=== PATIENT | male | born 1945 | race Caucasian/White ===

== ENCOUNTER → 2018-02-02 | Outpatient (CLI) | payer OTHER ==
[~2018-02-02] MED LIST: ADVAIR HFA 230M12 GM INH; ASPIRIN81 M2 PO; AZITHROMYCIN 2250 MG PO; CEFDINIR300 MG PO; CEFUROXIME500 MG PO; DUONEB 2.5-0.5 M3 ML INH; FLEXERIL PO; FLOMAX0.4 MG PO; GLUCOPHAGE500 MG PO; HUMULIN 70100 UNIT/3 SUBQ; HUMULIN N100 UNIT/3 SQ; IPRATROPIU0.2 MG/1 M INH; LANTUS SUBQ; LEVAQUIN 500 M500 M2 PO; LISINOPRIL10 MG PO; MUCINEX TA600 MG/TA2 PO; MUCINEX600 MG PO; NEBULIZER MISCELL; NORCO 5-325 TA1 EAC1 PO; NOVOLOG100 UNIT/1 SQ; OMEPRAZOLE 20 M20 M1 PO; PRAVACHOL40 MG PO; PREDNISONE 10 M10 MG PO; PREDNISONE10 MG PO; PROAIR HFA8.5 GM INH; PROTONIX40 M1 PO; SINGULAIR 10 MG10 M1 PO; STIOLTO RESPIMAT4 GM INH; VENTOLIN HFA 1818 GM INH; VERTICALM25 MG PO; ZYVOX600 MG PO
== END ==
LOC: M.MRI 10:53
DX: M19.011 Primary osteoarthritis, right shoulder (principal); M75.21 Bicipital tendinitis, right shoulder

== ENCOUNTER 2018-05-12 00:49 | Inpatient (IN) | payer OTHER ==
[2018-05-12] VITALS (8 sets, daily range): BP systolic 84–155; BP diastolic 25–83
[~2018-05-12] VITALS: Ht 172.7 cm; Wt 98.9 kg
[~2018-05-12 00:49] MED LIST changes: -ADVAIR HFA 230M12 GM INH; -CEFDINIR300 MG PO; -FLEXERIL PO; -FLOMAX0.4 MG PO; -IPRATROPIU0.2 MG/1 M INH; -MUCINEX600 MG PO; -OMEPRAZOLE 20 M20 M1 PO; -PROAIR HFA8.5 GM INH; -SINGULAIR 10 MG10 M1 PO; -STIOLTO RESPIMAT4 GM INH
[2018-05-12] MEDS ORDERED: FLEXERIL PO (00:57)
[2018-05-12] MEDS ORDERED: FLOMAX0.4 MG PO (00:57)
[2018-05-12] MEDS ORDERED: OMEPRAZOLE 20 M20 M1 PO (00:58)
[2018-05-12] MEDS ORDERED: STIOLTO RESPIMAT4 GM INH (00:58)
[2018-05-12] MEDS ORDERED: PROAIR HFA8.5 GM INH (00:59)
[2018-05-12] MEDS ORDERED: IPRATROPIU0.2 MG/1 M INH (01:00)
[2018-05-12 01:17] LABS: HEMATOCRIT 42.2 % (42.0-52.0); HEMOGLOBIN 13.9 gm/dL (14.0-18.0); MCH 30.9 pg (26.0-34.0); MCHC 32.9 g/dL (28.0-37.0); MCV 93.8 fL (80.0-100.0); MPV 10.1 fl. (7.2-11.1); NUCLEATED RBCS 0 /100WBC; PLATELET COUNT* 145 thou/uL (150-400); WBC 15.2 thou/uL (4.0-11.0)
[2018-05-12 01:17] LABS: BE -0.5 mmol/L (-2 to +3); HCO3 24.5 mmol/L (22.0-26.0); PCO2 41.7 mmHg (35.0-45.0); PO2 64.3 mmHg (75.0-100.0); pH 7.387 (7.340-7.450)
[2018-05-12 01:30] LABS: APTT 31.7 Seconds (25.0-31.3); PROTIME 10.5 Seconds (9.20-11.50)
[2018-05-12 01:31] LABS: ANION GAP 6 mmol/L (7-16); BUN 22 mg/dL (7-18); CALCIUM 8.9 mg/dL (8.5-10.1); CHLORIDE 98 mmol/L (98-107); CO2 31 mmol/L (21-32); CREATININE 1.1 mg/dL (0.6-1.3); GLUCOSE 188 mg/dL (70-99); POTASSIUM 4.7 mmol/L (3.5-5.1); SODIUM 135 mmol/L (136-145)
[2018-05-12 01:39] LABS: INFLUENZA A ANTIGEN None Detected (None Detect); INFLUENZA B ANTIGEN None Detected (None Detect)
[2018-05-12 01:41] LABS: ALBUMIN 2.8 g/dL (3.4-5.0); ALKALINE PHOSPHATASE 92 U/L (46-116); LIPASE 41 U/L (73-393); NT-PRO BRAIN NAT PEPTIDE 1193 pg/mL (<300); SGOT 14 U/L (15-37); SGPT 26 U/L (30-65); TOTAL BILIRUBIN 0.7 mg/dL (<0.1-1.0); TOTAL PROTEIN 7.2 g/dL (6.4-8.2); TROPONIN-I LEVEL <0.06 ng/mL (<0.06)
[2018-05-12 01:45] LABS: ABSOLUTE LYMPHOCYTES 0.6 thou/uL (0.8-5.3); ABSOLUTE MONOCYTES 2.1 thou/uL (0.0-1.2); ABSOLUTE NEUTROPHILS 12.5 thou/uL (1.6-8.1)
[2018-05-12 01:46] LABS: PLATELET ESTIMATE DECREASED; TOXIC GRANULATION Occasional
--- NOTE | 2018-05-12 11:38 | EKG ---
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 : 1945 Requested By: Lesley Lozano Order Number: [id number] MD: Arturo Nash Measurements Intervals [place] Rate: 103 P: 43 ID: [id number] QRS: -9 QRSD: 148 T: 14 QT: 378 QTc: 495 Interpretive Statements Sinus tachycardia Atrial premature complexes Right bundle branch block Probable left ventricular hypertrophy Borderline prolonged QT interval Baseline wander in lead(s) V6 Compared to ECG 03/22/2017 15:16:47 Atrial premature complex(es) now present Sinus rhythm no longer present Electronically Signed On 05-12-2018 11:38:18 INSTALLATION ENGINEER by Arturo Nash [email or web address] <ELECTRONICALLY SIGNED> By: Arturo Nash MD, FACC 05/12/18 1138 1 010 Arturo Nash MD, FACC /EPI
[2018-05-12 11:55] LABS: URINE BILIRUBIN NEGATIVE (Negative); URINE BLOOD 1+ (Negative); URINE CLARITY CLEAR; URINE COLOR YELLOW; URINE GLUCOSE-RANDOM 3+ (Negative); URINE KETONES 1+ (Negative); URINE LEUKOCYTES NEGATIVE (Negative); URINE NITRITE NEGATIVE (Negative); URINE PROTEIN 2+ (Negative); URINE SPECIFIC GRAVITY >= 1.030 (1.005-1.030)
[2018-05-12 12:05] LABS: BACTERIA None Seen /HPF (None Seen); CASTS None Seen /LPF (None Seen); CRYSTALS None Seen /LPF (None Seen); SQUAMOUS 4-10 Moderate /LPF (0-3); URINE RBC 0-2 Rare /HPF (0-2); URINE WBC 0-5 Rare /HPF (0-5)
[2018-05-13] VITALS: BP 144/88
[2018-05-13 04:00] VITALS: BP 149/71
[2018-05-13 05:01] LABS: HEMATOCRIT 40.2 % (42.0-52.0); MCH 30.5 pg (26.0-34.0); MCHC 32.3 g/dL (28.0-37.0); MCV 94.4 fL (80.0-100.0); MPV 10.2 fl. (7.2-11.1); RBC 4.25 mil/uL (4.50-6.00); RDW-CV 13.1 % (10.5-14.5); WBC 13.3 thou/uL (4.0-11.0)
[2018-05-13 05:18] LABS: CALCIUM 9.1 mg/dL (8.5-10.1); CREATININE 1.1 mg/dL (0.6-1.3); MAGNESIUM 2.1 mg/dL (1.8-2.4); POTASSIUM 4.7 mmol/L (3.5-5.1)
[2018-05-13 08:00] VITALS: BP 128/70
[2018-05-13 12:00] VITALS: BP 134/66
[2018-05-13 15:46] VITALS: BP 134/69
[2018-05-13 20:10] VITALS: BP 157/81
[2018-05-14] VITALS: BP 160/84
[2018-05-14 04:59] LABS: ABSOLUTE BASOPHILS 0.1 thou/uL (0.0-0.2); ABSOLUTE LYMPHOCYTES 0.9 thou/uL (0.8-5.3); ABSOLUTE MONOCYTES 0.8 thou/uL (0.0-1.2); ABSOLUTE NEUTROPHILS 13.5 thou/uL (1.6-8.1); BASOPHILS 0.5 %; HEMOGLOBIN 13.7 gm/dL (14.0-18.0); LYMPHOCYTES 5.9 %; MCH 30.6 pg (26.0-34.0); MCHC 32.5 g/dL (28.0-37.0); MCV 93.9 fL (80.0-100.0); MONOCYTES 4.9 %; MPV 9.5 fl. (7.2-11.1); NUCLEATED RBCS 0 /100WBC; PLATELET COUNT* 206 thou/uL (150-400); POLYS 88.7 %; RBC 4.47 mil/uL (4.50-6.00); RDW-CV 13.1 % (10.5-14.5); WBC 15.2 thou/uL (4.0-11.0)
[2018-05-14 05:15] LABS: CALCIUM 9.2 mg/dL (8.5-10.1); CREATININE 1.1 mg/dL (0.6-1.3); POTASSIUM 5.1 mmol/L (3.5-5.1)
[2018-05-14 08:00] VITALS: BP 140/77
[2018-05-14 14:00] VITALS: BP 139/69
[2018-05-14 20:43] VITALS: BP 144/71
[2018-05-15] VITALS: BP 146/45
[2018-05-15 04:53] LABS: HEMATOCRIT 42.3 % (42.0-52.0); HEMOGLOBIN 13.9 gm/dL (14.0-18.0); MCH 30.9 pg (26.0-34.0); MCHC 32.9 g/dL (28.0-37.0); MCV 93.8 fL (80.0-100.0); MPV 9.2 fl. (7.2-11.1); RBC 4.51 mil/uL (4.50-6.00); RDW-CV 12.8 % (10.5-14.5); WBC 14.3 thou/uL (4.0-11.0)
[2018-05-15 08:00] VITALS: BP 163/96
[2018-05-15] MEDS ORDERED: MUCINEX600 MG PO (08:35)
[2018-05-15] MEDS ORDERED: PREDNISONE 10 M10 MG PO (08:35)
[2018-05-15] MEDS ORDERED: CEFDINIR300 MG PO (08:35)
[2018-05-15] MEDS ORDERED: AZITHROMYCIN 2250 MG PO (08:35)
[2018-05-15] MEDS ORDERED: ADVAIR HFA 230M12 GM INH (08:35)
[2018-05-15] MEDS ORDERED: SINGULAIR 10 MG10 M1 PO (08:35)
[2018-05-15 11:47] VITALS: BP 163/96
--- NOTE | 2018-05-16 08:05 | CON ---
[address] [address] CONSULTATION Name: LESLEY MOSS Room: [address] IN M.R.#: [id number] Admission: 05/12/18 Attend Phys: Erika Grove Discharge: 05/15/18 Date of : 45 Report #: [id number] THIS REPORT FOR: //name// CC: Lavonne Rossi REASON FOR CONSULTATION: Respiratory failure, pulmonary infiltrate. HISTORY OF PRESENT ILLNESS: This is a 73-year-old male patient who was actively smoker, according to him, he smoked all his life and he has COPD, although he is not on any oxygen at home. He presented to the Emergency Department with increasing cough and shortness of breath. This cough is associated with yellow sputum. Also, he reported feeling feverish. The shortness of breath had been progressed. It is worse with exertion and progressed to a degree now he feels shortness of breath even at rest. He had no pain, no chest pain, no palpitation, no PNDs, no orthopnea. He denied any lower extremity edema. He continues to smoke. He was found to be hypoxic in the ER and started requiring O2 and he was admitted. He reported that he tried to use his nebulization treatment without much benefit. He denied any sick contacts or recent travel. He reported that he feels somewhat better with the treatment he received in the Emergency Room. ALLERGIES: No known drug allergies. PAST MEDICAL HISTORY: He has diabetes, hypertension, COPD, previous pneumonia. PAST SURGICAL HISTORY: Bilateral eye surgery and lens implant. HOME MEDICATIONS: He reports that he is on insulin, tamsulosin, omeprazole. He is on Stiolto and he is on DuoNeb. FAMILY HISTORY: Reviewed with the patient, noncontributory. SOCIAL HISTORY: He continues to smoke for multiple years, he smokes 1 pack per day. Does not drink alcohol. Does not abuse drugs. REVIEW OF SYSTEMS: GENITOURINARY: He denies any hematuria, dysuria, frequency or urgency. MUSCULOSKELETAL: Denies any back pain, muscle pain, joint deformities or injuries. SKIN: He denied any rash, bruising, or change in color. NEUROLOGIC: He denied any numbness, tingling, dizziness or focal weakness. EYES: Denies any eye pain, discharge, floaters or redness. CONSTITUTIONAL: He reported that he had a feeling of fever. No chills, no fatigue, no tired. GASTROINTESTINAL: He denied any abdominal pain, nausea, vomiting, [place] [address] CONSULTATION Name: LESLEY MOSS Room: [address]#: [id number] Admission: 05/12/18 Attend Phys: Erika Grove Discharge: 05/15/18 Date of : 45 Report #: [id number] bleeding from any orifice. The rest of the review of system was Negative. A 12-point review of systems reviewed with the patient. PHYSICAL EXAMINATION: VITAL SIGNS: He was on 4 liters oxygen with oxygen saturation more than 90%, blood pressure 128/70, pulse rate of 69, temperature 36.7. GENERAL: Sitting on the side of the bed, awake, alert, speaks in full sentences. No full distress. HEENT: Head, normocephalic, atraumatic. Pupils reactive to light. Not pale, no jaundice. Externally ears look healthy and normal. Nasal cavity patent passages. Oral cavity: Mallampati of 2, moist mucous membrane, no thrush. NECK: Supple. No palpable lymph node. No palpable thyroid. Trachea is central. CHEST: Diminished air movement bilaterally with prolonged expiratory phase and end-expiratory wheezes. Symmetrical expansion, nontender. HEART: S1, S2. No murmur, no gallop. ABDOMEN: Benign, soft, lax, nontender, positive bowel sounds. No masses felt. EXTREMITIES: Lower extremity, no edema. Moving 4 extremities spontaneously. No focal weakness. No calf tenderness. NEUROLOGIC: Cranial nerves grossly normal. PSYCHIATRIC: Mood and affect appropriate. Good insight, judgment. SKIN: Normal for age and race, no rash. LYMPHATICS: No palpable lymph node. LABORATORY DATA: His ABG is 7.38/41/64, this was done on 4 liter oxygen. His white blood count 16.3, hemoglobin 13 and platelets of 160. His creatinine is 1.1, potassium 4.7, sodium 136. His Influenza A and B negative. His chest x-ray in the ER showed interstitial infiltrates with some progression. However, the CT of the chest demonstrated ground glass infiltrate and very fine small central lobular nodules. IMPRESSION: 1. Acute hypoxic respiratory failure. 2. Chronic obstructive pulmonary disease exacerbation. 3. Pulmonary nodules. 4. Ground-glass infiltrate. PLAN: We will suspect the patient is in chronic obstructive pulmonary disease exacerbation. As unfortunately he continues to smoke, he had though central lobular nodule, which could indicate infectious process like pneumonia, bacterial versus viral, I agree with antibiotics and steroids and scheduled nebulization treatments. Also, these nodules could be related to continued smoking, like smoking related interstitial lung disease. I strongly recommend smoking cessation. [address] [address] CONSULTATION Name: LESLEY MOSS Room: [address] IN [facility]#: [id number] Admission: 05/12/18 Attend Phys: Erika Grove Discharge: 05/15/18 Date of : 45 Report #: [id number] We will check hypersensitivity pneumonitis panel and he will be on steroids. Thank you for the consult. We will follow along with you. <ELECTRONICALLY SIGNED> By: Mickie Pulliam MD 05/16/18 0805 1125 [id number] Pulliam MD /nt
== END 2018-05-15 12:15 | disposition home or self-care (01) | DRG 193 ==
LOC: M.ERS 00:49 → M.2W 01:52 → M.TBA-ER 01:52 → M.2W 02:10
PROVIDERS: Emergency Medicine; Internal Medicine; ADMIT Internal Medicine
DX: J15.9 Unspecified bacterial pneumonia (principal); J96.01 Acute respiratory failure with hypoxia; J44.1 Chronic obstructive pulmonary disease with (acute) exacerbation; J44.0 Chronic obstructive pulmonary disease with (acute) lower respiratory infection; R65.10 Systemic inflammatory response syndrome (SIRS) of non-infectious origin without acute organ dysfunction; Z66 Do not resuscitate; E11.9 Type 2 diabetes mellitus without complications; I10 Essential (primary) hypertension; E78.5 Hyperlipidemia, unspecified; R91.1 Solitary pulmonary nodule; F17.210 Nicotine dependence, cigarettes, uncomplicated; Z79.4 Long term (current) use of insulin; Z71.6 Tobacco abuse counseling; Z79.899 Other long term (current) drug therapy; Z82.49 Family history of ischemic heart disease and other diseases of the circulatory system

== ENCOUNTER 2018-07-07 10:44 | Inpatient (IN) | payer OTHER ==
[~2018-07-07] VITALS: Ht 172.7 cm; Wt 105.7 kg
[~2018-07-07 10:44] MED LIST changes: +ADVAIR HFA 230M12 GM INH; +CEFDINIR300 MG PO; +FLEXERIL PO; +FLOMAX0.4 MG PO; +IPRATROPIU0.2 MG/1 M INH; +MUCINEX600 MG PO; +OMEPRAZOLE 20 M20 M1 PO; +PROAIR HFA8.5 GM INH; +SINGULAIR 10 MG10 M1 PO; +STIOLTO RESPIMAT4 GM INH
[2018-07-07 10:57] VITALS: BP 145/67
[2018-07-07 11:44] LABS: HEMATOCRIT 40.3 % (42.0-52.0); HEMOGLOBIN 13.2 gm/dL (14.0-18.0); MCH 30.6 pg (26.0-34.0); MCHC 32.8 g/dL (28.0-37.0); MCV 93.3 fL (80.0-100.0); MPV 9.7 fl. (7.2-11.1); NUCLEATED RBCS 0 /100WBC; PLATELET COUNT* 164 thou/uL (150-400); RBC 4.32 mil/uL (4.50-6.00); RDW-CV 13.8 % (10.5-14.5); WBC 15.1 thou/uL (4.0-11.0)
[2018-07-07 11:48] LABS: CALCIUM 9.1 mg/dL (8.5-10.1); CREATININE 1.1 mg/dL (0.6-1.3); POTASSIUM 4.3 mmol/L (3.5-5.1)
[2018-07-07 11:56] LABS: ALBUMIN 3.3 g/dL (3.4-5.0); TOTAL BILIRUBIN 0.5 mg/dL (<0.1-1.0); TOTAL PROTEIN 7.4 g/dL (6.4-8.2)
[2018-07-07 12:17] LABS: ABSOLUTE LYMPHOCYTES 0.6 thou/uL (0.8-5.3); ABSOLUTE MONOCYTES 1.1 thou/uL (0.0-1.2); ABSOLUTE NEUTROPHILS 13.4 thou/uL (1.6-8.1); METAMYELOCYTES 1 %
[2018-07-07 12:18] LABS: PLATELET ESTIMATE ADEQUATE; TOXIC GRANULATION 2+
[2018-07-07 12:20] LABS: BE -2.5 mmol/L (-2 to +3); PCO2 37.3 mmHg (35.0-45.0); PO2 70.7 mmHg (75.0-100.0); pH 7.389 (7.340-7.450)
[2018-07-07 14:52] VITALS: BP 149/74
[2018-07-07 15:30] VITALS: BP 137/80
[2018-07-07] MEDS ORDERED: ADVAIR HFA 230M12 GM INH (17:39)
[2018-07-07] MEDS ORDERED: VENTOLIN HFA 1818 GM INH (17:40)
--- NOTE | 2018-07-07 19:04 | NUR ---
ASSUMED PATIENT CARE @ 1445. LEFT ELBOW PAIN OF 01/05. PT ORIENTED TO ROOM. IVF STARTED AND INFUSING. VS STABLE. RECEIVED HYDROCODONE FOR PAIN CONTROL. PT REPORTED DID NOT RELIEVE PAIN. PT TO BE NPO AT MIDNOC. HAS DRESSING PLACED BY ER ON LEFT ELBOW. HOURLY ROUNDS MAINTAINED. WILL USE CALL LIGHT FOR ASSISTANCE.
[2018-07-07 20:00] VITALS: BP 111/50
[2018-07-08 04:21] LABS: ABSOLUTE EOSINOPHILS 0.2 thou/uL (0.0-0.7); ABSOLUTE LYMPHOCYTES 1.5 thou/uL (0.8-5.3); ABSOLUTE MONOCYTES 1.4 thou/uL (0.0-1.2); ABSOLUTE NEUTROPHILS 9.2 thou/uL (1.6-8.1); BASOPHILS 0.3 %; EOSINOPHILS 1.4 %; HEMATOCRIT 32.4 % (42.0-52.0); LYMPHOCYTES 12.4 %; MCH 30.9 pg (26.0-34.0); MCHC 33.3 g/dL (28.0-37.0); MCV 92.6 fL (80.0-100.0); MONOCYTES 11.4 %; MPV 9.8 fl. (7.2-11.1); NUCLEATED RBCS 0 /100WBC; PLATELET COUNT* 141 thou/uL (150-400); POLYS 74.5 %; RBC 3.49 mil/uL (4.50-6.00); RDW-CV 13.9 % (10.5-14.5); WBC 12.4 thou/uL (4.0-11.0)
[2018-07-08 04:31] LABS: APTT 33.5 Seconds (25.0-31.3); PROTIME 10.4 Seconds (9.20-11.50)
[2018-07-08 04:32] LABS: HEMOGLOBIN 10.8 gm/dL (14.0-18.0)
[2018-07-08 04:33] LABS: CREATININE 1.1 mg/dL (0.6-1.3); POTASSIUM 4.1 mmol/L (3.5-5.1)
--- NOTE | 2018-07-08 06:14 | NUR ---
PT. HAS C/O PAIN THROUGHOUT SHIFT, CALL MADE TO DR. ALBA REGARDING PAIN CONTROL, INCREASED HYDROCODONE TO 1-2 TABS PRN. PT. GIVEN 2 HYDROCODONE, NO PAIN RELIEF OBTAINED. WILL RELAY TO ONCOMING SHIFT. PT. IS STAND BY ASSIST WHEN AMBULATING. HOURLY ROUNDING COMPLETED. CALL LIGHT IN REACH, WILL CONTINUE TO MONITOR.
[2018-07-08 08:00] VITALS: BP 121/53
--- NOTE | 2018-07-08 10:55 | CON ---
[address] [address] CONSULTATION Name: AJAYLESLEY Migdalia Room: [address] IN M.R.#: [id number] Admission: 07/07/18 Attend Phys: Drew Degroot MD Discharge: Date of : 45 Report #: [id number] THIS REPORT FOR: //name// CC: Lavonne Degroot DATE OF SERVICE: 07/08/2018 INFECTIOUS DISEASE CONSULTATION ATTENDING PHYSICIAN: Drew Degroot M.D. REASON FOR EVALUATION: Left olecranon septic bursitis. HISTORY OF PRESENT ILLNESS: Chart reviewed, the patient examined. This is a 73-year-old gentleman with diabetes mellitus roughly 18 years diagnosis and also COPD, who awoke out of sleep and noted pain and swelling, which he describes a size of a golf ball, on his left elbow lateral aspect. He was evaluated as an outpatient and attempted drainage, without success and he was placed on antibiotics. However, there was no evidence of improvement. He denies any significant systemic illness. No fevers or chills. Appetite has been good. No pulmonary or gastrointestinal-related complaints different from baseline. He was evaluated, including imaging. Plain film showed prominent soft tissue swelling over the left olecranon region. He underwent CT, which confirmed a 2 x 3 x 5 cm irregular fluid collection with intraluminal gas in the posterior soft tissues of the elbow and a question of olecranon bursal infection or adjacent subcutaneous abscess. He has extensive subcutaneous edema as well, consistent with cellulitis, extending both distally and proximally. Blood cultures were collected; they are sterile thus far. He was empirically started on ceftriaxone. He is not encephalopathic. ALLERGIES: None known. MEDICATIONS: Medicines include now vancomycin, insulin, promethazine, bisacodyl, diphenhydramine, montelukast, ipratropium and albuterol inhaler, tamsulosin, pantoprazole, ceftriaxone, p.r.n. analgesics and antiemetics. PAST MEDICAL HISTORY: History of diabetes mellitus and also COPD. SOCIAL HISTORY: Former smoker. No ethanol. No illicit drug use. FAMILY HISTORY: Noncontributory. REVIEW OF SYSTEMS: Ten-point review of systems otherwise unremarkable, with the exception noted in the above [place] [address] CONSULTATION Name: LESLEY MOSS Room: [address]#: [id number] Admission: 07/07/18 Attend Phys: Drew Degroot MD Discharge: Date of : 45 Report #: [id number] PHYSICAL EXAMINATION: GENERAL: He is in vatd-of-tjcqpaao distress. He is not encephalopathic. He is reasonably well nourished. VITAL SIGNS: Temperature 99.3, pulse 89, respirations 20 and blood pressure 111/50. SKIN: Warm. HEENT: Otherwise unremarkable. Extraocular muscles intact. NECK: Supple. LUNGS: Diminished, otherwise clear. HEART: Regular. I do not appreciate a murmur. ABDOMEN: Soft, nontender and nondistended. EXTREMITIES: Left upper extremity has mvljdfvj-cn-czenre inflammatory changes noted centering on the olecranon site. There is marked swelling and there is some tenseness and tenderness to palpation, consistent with excessive bursal fluid. It does extend several centimeters down under the forearm and up the arm. Overlying the olecranon, there is some hemorrhagic appearance, although not initially contused. GENITOURINARY: Deferred. RECTAL: Deferred. LABORATORY DATA: Blood cultures sterile thus far. TSH of 0.666. Vitamin B12 of 415. Electrolytes: Sodium 136, potassium 4.1, chloride 106, bicarbonate 27, anion gap of 6, BUN and creatinine 17 and 1.1 and estimated GFR of 66. PT of 10.4, INR 1.0. CBC: White count of 12.4, H and H 10.8 and 32.4 and platelets of 141,000. IMAGING: As noted above. ASSESSMENT AND PLAN: Left olecranon septic bursitis. We will continue empiric antimicrobial therapy, presume a staph or strep etiology, likely the former, noted Surgery to evaluate. In all likelihood, he will need some sort of debridement procedure and evacuation of the bursa and possibly bursectomy. At this point, he is not overtly toxic. We will monitor expectantly. <ELECTRONICALLY SIGNED> By: Gómez Lima MD 07/08/18 1055 0924 [id number] Lima MD /nt
[2018-07-08 16:05] VITALS: BP 124/60
[2018-07-08 20:00] VITALS: BP 141/66
[2018-07-09 04:03] LABS: HEMATOCRIT 32.7 % (42.0-52.0); HEMOGLOBIN 10.7 gm/dL (14.0-18.0); MCH 30.6 pg (26.0-34.0); MCHC 32.8 g/dL (28.0-37.0); MCV 93.3 fL (80.0-100.0); MPV 9.7 fl. (7.2-11.1); RBC 3.51 mil/uL (4.50-6.00); RDW-CV 13.6 % (10.5-14.5); WBC 12.4 thou/uL (4.0-11.0)
[2018-07-09 04:10] LABS: CALCIUM 7.7 mg/dL (8.5-10.1); CREATININE 1.3 mg/dL (0.6-1.3); MAGNESIUM 1.6 mg/dL (1.8-2.4); POTASSIUM 4.1 mmol/L (3.5-5.1)
--- NOTE | 2018-07-09 05:16 | NUR ---
PT REMAINED A&Ox4 THROUGHOUT SHIFT. VITALS STABLE. OX 93% ON RA. IV IN R AC PATENT, SL. COMPLETED 3 BAGS OF FLUIDS. UP AD SHANTANU IN ROOM. L ELBOW REMAINS SWOLLEN. KEYUR CALLED AND STATED PT WILL HAVE SURGERY AT 11AM TO CLEAN OUT SITE. COMPLAINED OF MINIMAL PAIN, DENIED PAIN MEDS. PT WAS NPO AFTER MIDNIGHT FOR SURGERY IN AM. CALL LIGHT WITHIN REACH. HOURLY ROUNDING COMPLETE. WILL CONTINUE TO MONITOR.
[2018-07-09 08:00] VITALS: BP 144/95
[2018-07-09 08:41] VITALS: BP 144/53
[2018-07-09 10:23] VITALS: BP 144/53
[2018-07-09 10:28] VITALS: BP 144/60
--- NOTE | 2018-07-09 10:28 | NUR ---
TO PRE OP AT 1000 WITH GOLDEN TAN.
--- NOTE | 2018-07-09 10:53 | EKG ---
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: : 1945 Requested By: Rolando Rose Order Number: [id number] Zeke MD: Dwayne Price Measurements Intervals [place] Rate: 97 P: 35 ID: 163 QRS: -19 QRSD: 151 T: 16 QT: 384 QTc: 488 Interpretive Statements Sinus rhythm Right bundle branch block Compared to ECG 05/12/2018 01:02:13 Sinus tachycardia no longer present Atrial premature complex(es) no longer present Electronically Signed On 07-09-2018 10:53:20 WASTEWATER PROJECT ENGINEER by Dwayne Price [email or web address] <ELECTRONICALLY SIGNED> By: Dwayne Price MD, [facility] 07/09/18 1053 6 6 Dwayne Price MD, [facility] /EPI
--- NOTE | 2018-07-09 14:12 | NUR ---
PER 'S NOTE THAT PT.MAY NEED IV ANTIBIOTIC AT DISCHARGE,FAXED FACE SHEE,MED LIST AND H&P TO [facility]/[phone] TO CHECK BENEFITS.
--- NOTE | 2018-07-09 15:30 | NUR ---
PT.RESTING AFTER I&D. DAUGHTER AT BEDSIDE. PT.STATED HE LIVES WITH HIS . SHE CAN ASSIST HIM NEEDED. DAUGHTER IS ALSO SUPPORTIVE. PT.STATED HE IS INDEPENDENT AT HOME. CONTINUES TO DRIVE. ONLY DME HE HAS IS A NEBULIZER. DISCUSSED POSSIBILITY OF IV ANTIBIOTICS AT DISCHARGE. HE SAID HE FEELS HIS AND HE COULD LEARN TO INFUSE THEM. DAUGHTER SAID THEY ALL HAVE A MEDICAL BACKROUND SO WOULD NOT BE A PROBLEM. DISCUSSED BENEFITS WITH HIM REPORTED FROM [facility].
[2018-07-09 16:31] VITALS: BP 138/57
[2018-07-09 22:14] VITALS: BP 129/65
[2018-07-10 00:15] VITALS: BP 121/59
--- NOTE | 2018-07-10 02:29 | NUR ---
RECIEVED REPORT AND ASSUMED CARE OF PT AT 1930. PT TACHYPNIC WITH RESPIRATORY STRIDOR AND USING ACCESSORY MUSCLES TO BREATHE AT THAT TIME. PT'S LUNGS WET AND WHEEZY. O2 SAT ON 2 LITERS 92%. 2-3+ EDEMA NOTED IN HANDS, FEET AND ANKLES. DR SHEPPARD NOTIFIED OF PT'S CHANGE IN CONDITION. RECIEVED ORDERS FOR IV LASIX. PT GIVEN 80 MG IV LASIX. PT HAS DIURESED 1600 UP TO THIS POINT. PT NOW LAYING IN BED SLEEPING WITH OU CLOSED. O2 SAT NOW 94-97% ON ROOM AIR. LUNG SOUNDS AND EFFORT OF BREATHING IMPROVED.
[2018-07-10 03:49] VITALS: BP 140/77
[2018-07-10 04:15] LABS: HEMATOCRIT 33.6 % (42.0-52.0); HEMOGLOBIN 11.1 gm/dL (14.0-18.0); MCH 30.7 pg (26.0-34.0); MCV 92.9 fL (80.0-100.0); MPV 9.8 fl. (7.2-11.1); RBC 3.61 mil/uL (4.50-6.00); RDW-CV 13.6 % (10.5-14.5); WBC 11.1 thou/uL (4.0-11.0)
[2018-07-10 04:23] LABS: CALCIUM 7.9 mg/dL (8.5-10.1); CREATININE 1.3 mg/dL (0.6-1.3); MAGNESIUM 1.6 mg/dL (1.8-2.4); POTASSIUM 4.4 mmol/L (3.5-5.1)
--- NOTE | 2018-07-10 07:01 | NUR ---
PT RECIEVED 80 MG IV LASIX AT START OF SHIFT FOR RESPIRATORY DISTRESS AND SWELLIN OF EXTREMITIES. PT DIURESED 2175 DURING NIGHT. PT RESPIRATORY STATUS BACK TO BASELINE. PT REPORTS BREATHING BETTER AND FEELING BETTER. NO PAIN OR DISCOMFORT AT SUGICAL SITE DURING SHIFT. SUGURY RESIDENT HERE AT 0600. REMOVED DRESSING AND REDRESSED SITE.
[2018-07-10 08:00] VITALS: BP 162/84
[2018-07-10 16:00] VITALS: BP 154/62
[2018-07-10 21:00] VITALS: BP 140/66
[2018-07-11 05:06] LABS: HEMATOCRIT 31.5 % (42.0-52.0); HEMOGLOBIN 10.6 gm/dL (14.0-18.0); MCH 31.3 pg (26.0-34.0); MCHC 33.6 g/dL (28.0-37.0); MCV 93.2 fL (80.0-100.0); MPV 8.9 fl. (7.2-11.1); RBC 3.38 mil/uL (4.50-6.00); RDW-CV 13.7 % (10.5-14.5)
[2018-07-11 05:42] LABS: CALCIUM 8.3 mg/dL (8.5-10.1); MAGNESIUM 1.6 mg/dL (1.8-2.4); POTASSIUM 4.3 mmol/L (3.5-5.1)
--- NOTE | 2018-07-11 06:48 | NUR ---
Alert and oriented x 4. He's up independently in the room, he has been 95% on roomair. He does cough at times and lungs were wheezy and diminished, he's getting breathing treatments. Dressing to L elbow clean, dry and intact. He was awake most of the night. Melatonin was given and he slept x 2 hours.
[2018-07-11 08:45] VITALS: BP 161/89
[2018-07-11 17:42] VITALS: BP 167/78
--- NOTE | 2018-07-11 18:19 | NUR ---
PATIENT ALERT AND ORIENTED X 4. VITAL SIGNS STABLE ON ROOM AIR. AFEBRILE. UP INDEPENDENTLY IN ROOM. IV PATENT AND SALINE LOCKED. DENIES PAIN AND NAUSEA AT THIS TIME. DRESSING TO LEFT ELBOW CLEAN, DRY, AND INTACT. HOURLY ROUNDS MAINTAINED THROUGHOUT THE SHIFT. CALL LIGHT WITHIN REACH. NURSING WILL CONTINUE TO MONITOR.
[2018-07-11 20:00] VITALS: BP 165/82
[2018-07-12 00:27] VITALS: BP 131/61
[2018-07-12 04:00] VITALS: BP 140/78
--- NOTE | 2018-07-12 06:32 | NUR ---
Alert and oriented x 4. He is up independently in the room. He did have some nausea this am, zofran was given. Dressing to L elbow was changed, he has 7 sutures and they are approximated well. non-stick island dressing applied and,kerlix and new acewrap. He did sleep well this shift after melatonin was given.
[2018-07-12 08:10] VITALS: BP 136/64
[2018-07-12] MEDS ORDERED: ZYVOX600 MG PO (09:02)
[2018-07-12] MEDS ORDERED: HYDROCODON-ACE1 EAC7 PO (09:02)
[2018-07-12 10:14] VITALS: BP 136/64
[2018-07-12 10:28] VITALS: BP 136/64
--- NOTE | 2018-07-12 11:00 | NUR ---
PRESCRIPTION FOR LINEZOLID, WRITTEN, TO PT[facility]S [facility] IN [place]. WILL CALL BACK FOR COPAY.
[2018-07-12 17:21] VITALS: BP 170/75
--- NOTE | 2018-07-12 17:23 | NUR ---
PATIENT DISCHARGING TO HOME AT THIS TIME. CASE MANAGEMENT WORKED ON [employer] FOR SEVERAL HOURS. PATIENT DISCHARGED WITH [employer]OX ASSISTANCE PACKET, AND GOOD RX SCRIPT CARD. PATIENTS BLOOD GLUCOSE 70 BEFORE DINNER, RECHECK WAS 63. PATIENT ATE DINNER, AND DRANK 4 JUICES. ENCOURAGED PATIENT TO STAY FOR A WHILE AND RECHECK THE BLOOD SUGAR. PATIENT STATES HE FEELS FINE AND WILL TAKE JUICE WITH HIM. STATES THEY WILL CHECK IT WHEN THEY GET HOME, HE HAS THIS ISSUE AT HOME. NO INSULIN GIVEN AT DINNER. PATIENT ANXIOUS TO DISCHARGE. IV REMOVED. SCRIPTS GIVEN. WILL CONTINUE TO MONITOR.
--- NOTE | 2018-07-12 17:26 | NUR ---
[facility]OX NEEDED PRIOR AUTH[facility]D [facility] CM OBTAINED PRIOR AUTH PER [facility] [phone]. ATTEMPTED TO CHECK COPAY ALL AFTERNOON FROM [employer]. CALLED EVERY 1/2 HR. THEY SAID THEIR COMPUTER SYSTEM WAS DOWN FOR MAINTENANCE/UPDATES. AT 1600 OBTAINED COPAY FOR $295. PT.SAID HE COULD NOT AFFORD THIS AMOUNT. CALLED [employer] ASSIST [facility]. THEY FAXED APPLICATION FOR ASSIST TO CM . PT. NEEDS TO FILL THIS OUT AND FAX WITH PROVE OF INCOME TO [employer] ASSIST. FAX # ON BOTTOM OF FORM. OBTAINED ID,GROUP,BIN AND PCN # AND GAVE TO PT. ALONG WITH PRESCRIPTION. THEY CAN TAKE NUMBERS TO PHARMACY AND CAN RECEIVE 4-6 DAYS WORTH OF ZYVOX TABS. THEY NEED TO TRY TO GET THEIR APPLICATION FAXED IN BY 1-2 DAYS. IF THEY QUALIFY,[employer]YV[employer] ASSIST WILL OVERNIGHT THE REMAINDER OF THE PRESCRIPTION TO PT. EXPLAINED ABOVE TO PT.AND . THEY SEEMED SOMEWHAT OVERWHELMED BY THIS. GAVE THEM A GOOD RX CARD. ACCORDING TO WEBSITE,ZYVOX CAN BE OBTAINED WITH CARD FOR $78. SAID THEY CAN AFFORD THIS. THEY WILL TRY THIS METHOD FIRST. PER [employer] [employer] THEY DO HAVE MEDICATION IN STOCK.
--- NOTE | 2018-07-14 07:08 | OP ---
[address] [address] OPERATIVE REPORT Name: LESLEY MOSS Room: [address] IN M.R.#: [id number] Admission: 07/07/18 Attend Phys: Drew Degroot MD Discharge: 07/12/18 Date of : 45 Report #: [id number] THIS REPORT FOR: //name// CC: Lavonne Degroot DICTATED BY: Ishan Levi DO DATE OF SERVICE: 07/09/2018 PREOPERATIVE DIAGNOSIS: Left septic olecranon bursitis. POSTOPERATIVE DIAGNOSIS: Left septic olecranon bursitis. PROCEDURE PERFORMED: Left elbow irrigation and debridement to fascia with olecranon bursectomy. ANESTHESIA: General. ESTIMATED BLOOD LOSS: 10 mL. SPECIMENS: Bursal tissue for culture and culture swabs of bursal fluid x 2. COMPLICATIONS: None. DISPOSITION: To PACU. CONDITION: Stable. ANTIBIOTICS: Scheduled vancomycin. Drains: One Joon drain. INDICATION FOR PROCEDURE: The patient is a 73-year-old male who presented to the Emergency Department at [facility] on 07/07/2018 with 4 days of left elbow swelling and pain. Presentation was consistent with a left septic olecranon bursitis. He had tried a course of oral antibiotics, but symptoms continue to progress. We discussed treatment options and recommended a formal irrigation and debridement of the elbow with olecranon bursectomy in the operating room. We discussed risks, benefits, complications and alternatives with the patient. Risks include but are not limited to blood loss, DVT, PE, continued infection, failure to alleviate symptoms, need for repeat surgery, damage to neurovascular structures and complications of anesthesia. The patient expressed understanding and wished to proceed. FINDINGS: A 5 cm incision was performed and demonstrated the [address] [address] OPERATIVE REPORT Name: LESLEY MOSS Room: [address] IN [facility]#: [id number] Admission: 07/07/18 Attend Phys: Drew Degroot MD Discharge: 07/12/18 Date of : 45 Report #: [id number] serous drainage. immediately upon completion of the incision, there was extensive thickened bursal tissue noted throughout the olecranon bursal area. Total debrided area was 5 cm long x 3 cm wide and 2 cm deep. DESCRIPTION OF PROCEDURE: The patient was transferred to the operating room and placed on the operating table in the supine position. He was given the benefit of general anesthesia. A well-padded pneumatic tourniquet was placed on the left upper arm. The left upper extremity was then prepped and draped in the usual sterile fashion. A timeout was taken to confirm the appropriate patient identification, operative site, procedure to be performed. The tourniquet was inflated to 250 mmHg. A 15 blade scalpel was used to perform a 5 cm longitudinal incision overlying the olecranon bursa. Incision was carried down sharply to the level of the bursa. As previously noted, there was extensive purulent watery drainage that was released upon completion of the incision. The thickened bursal tissue was then sharply excised using the scalpel blade. Portion of the bursal tissue was sent to micro for culture. The purulent fluid was also cultured with a swab and sent for culture and sensitivities. Once the bursa was sharply excised, the remaining bursal tissue was then debrided using a rongeur. We then irrigated the wound with copious amounts of the normal saline using TUR tubing. A Joon drain was inserted into the incision site. A 2-0 Monocryl was used to close deep tissues loosely. 2-0 nylon was then used to approximate the skin. The Joon will be left in place for 2 days, at which point we will perform a dressing change. The patient will be kept on scheduled antibiotics while we wait for cultures and sensitivities. Sterile dressings were placed and the patient was transferred to PACU in stable condition. <ELECTRONICALLY SIGNED> By: Rolando Rose DO 07/14/18 0708 1200 [id number] Harper Cool DO /kia
== END 2018-07-12 18:09 | disposition home or self-care (01) | DRG 854 ==
LOC: M.ERS 10:44 → M.TBA-ER 13:08 → M.ORTHSURG 13:08
PROVIDERS: Internal Medicine; Personal Emergency Response Attendant; ADMIT Family Medicine
PROC: 0JBH0ZZ Excision of Left Lower Arm Subcutaneous Tissue and Fascia, Open Approach (ICD-10-PCS; principal; 2018-07-09)
PROC: 0MB40ZZ Excision of Left Elbow Bursa and Ligament, Open Approach (ICD-10-PCS; principal; 2018-07-09)
DX: A41.9 Sepsis, unspecified organism (principal); L03.114 Cellulitis of left upper limb; M60.022 Infective myositis, left upper arm; M00.9 Pyogenic arthritis, unspecified; N40.0 Benign prostatic hyperplasia without lower urinary tract symptoms; M71.022 Abscess of bursa, left elbow; B95.62 Methicillin resistant Staphylococcus aureus infection as the cause of diseases classified elsewhere; M71.122 Other infective bursitis, left elbow; E11.9 Type 2 diabetes mellitus without complications; J44.9 Chronic obstructive pulmonary disease, unspecified; E78.5 Hyperlipidemia, unspecified; Z87.891 Personal history of nicotine dependence; Z82.49 Family history of ischemic heart disease and other diseases of the circulatory system; Z79.899 Other long term (current) drug therapy

== ENCOUNTER 2018-09-01 09:30 | Inpatient (IN) | payer OTHER ==
[~2018-09-01] VITALS: Ht 172.7 cm; Wt 105.2 kg
[~2018-09-01 09:30] MED LIST changes: +HYDROCODON-ACE1 EAC7 PO
[2018-09-01 10:00] VITALS: BP 151/45
[2018-09-01 11:23] LABS: ABSOLUTE BASOPHILS 0.1 thou/uL (0.0-0.2); ABSOLUTE EOSINOPHILS 0.7 thou/uL (0.0-0.7); ABSOLUTE LYMPHOCYTES 2.3 thou/uL (0.8-5.3); ABSOLUTE MONOCYTES 0.9 thou/uL (0.0-1.2); ABSOLUTE NEUTROPHILS 7.2 thou/uL (1.6-8.1); BASOPHILS 0.7 %; HEMOGLOBIN 12.4 gm/dL (14.0-18.0); LYMPHOCYTES 20.5 %; MCH 30.1 pg (26.0-34.0); MCHC 32.7 g/dL (28.0-37.0); MONOCYTES 7.7 %; MPV 9.3 fl. (7.2-11.1); NUCLEATED RBCS 0 /100WBC; PLATELET COUNT* 203 thou/uL (150-400); POLYS 65.1 %; RBC 4.13 mil/uL (4.50-6.00); RDW-CV 14.6 % (10.5-14.5)
[2018-09-01 11:35] LABS: BE 2.2 mmol/L (-2 to +3); PO2 72.2 mmHg (75.0-100.0); pH 7.367 (7.340-7.450)
[2018-09-01 11:36] LABS: ALBUMIN 3.4 g/dL (3.4-5.0); POTASSIUM 3.6 mmol/L (3.5-5.1); TOTAL BILIRUBIN 0.2 mg/dL (<0.1-1.0); TOTAL PROTEIN 7.1 g/dL (6.4-8.2)
[2018-09-01 11:37] LABS: PCO2 50.5 mmHg (35.0-45.0)
[2018-09-01 12:30] VITALS: BP 180/79
--- NOTE | 2018-09-01 16:16 | 2DMMODE ---
[place] [address] 2 D/M-MODE ECHOCARDIOGRAM Name: LESLEY MOSS Room: [facility] IN [facility]#: [id number] Admission: 09/01/18 Attend Phys: Sherrell Balbuena, Discharge: Date of : 45 Date of Service: 09/01/18 1616 Report #: [id number] THIS REPORT FOR: //name// APPROVED REPORT Study performed: 09/01/2018 15:29:30 EXAM: Comprehensive 2D, Doppler, and color-flow Echocardiogram Patient Location: In-Patient Room #: [facility] Status: routine BSA: 2.18 HR: 93 bpm BP: 151/45 mmHg Rhythm: NSR Other Information Study Quality: Good Indications COPD Dyspnea 2D Dimensions IVSd: 12.19 (7-11mm) LVOT Diam: 21.76 (18-24mm) LVDd: 61.12 mm PWd: 10.01 (7-11mm) Ascending Ao: 38.80 (22-36mm) LVDs: 47.66 (25-40mm) Aortic Root: 39.22 mm Volumes Left Atrial Volume (Systole) LA ESV Index: 24.90 mL/m2 Aortic Valve AoV Peak Javier.: 1.50 m/s AO Peak Gr.: 8.97 mmHg LVOT Max P.55 mmHg AO Mean Gr.: 5.18 mmHg LVOT Mean P.55 mmHg LVOT Max V: 1.18 m/s AO V2 VTI: 31.40 cm LVOT Mean V: 0.72 m/s ZULEYMA (VTI): 2.94 cm2 LVOT V1 VTI: 24.80 cm Mitral Valve E/A Ratio: 0.68 MV Decel. Time: 227.91 [place] [address] 2 D/M-MODE ECHOCARDIOGRAM Name: LESLEY MOSS Room: [address] IN .R.#: [id number] Admission: 09/01/18 Attend Phys: Sherrell Balbuena, Discharge: Date of : 45 Date of Service: 09/01/18 1616 Report #: [id number] MV E Max Javier.: 0.97 m/s MV PHT: 66.09 ms MVA (PHT): 3.33 cm2 TDI E/Lateral E': 12.13 E/Medial E': 10.78 Medial E' Javier.: 0.09 m/s Lateral E' Javier.: 0.08 m/s Pulmonary Valve PV Peak Javier.: 1.10 m/s PV Peak Gr.: 4.81 mmHg Left Ventricle Left ventricle is borderline dilated. There is normal LV segmental wall motion. There is normal left ventricular wall thickness. Left ventricular systolic function is mildly decreased. LVEF is 45%. Grade I - abnormal relaxation pattern. Right Ventricle The right ventricle is normal size. The right ventricular systolic function is normal. Atria The left atrium size is normal. The right atrium size is normal. Aortic Valve Mild aortic valve sclerosis. No aortic regurgitation is present. There is no aortic valvular stenosis. Mitral Valve The mitral valve is normal in structure. Trace mitral regurgitation. No evidence of mitral valve stenosis. Tricuspid Valve The tricuspid valve is normal in structure. There is no tricuspid valve regurgitation noted. Pulmonic Valve The pulmonary valve is normal in structure. There is no pulmonic valvular regurgitation. Great Vessels The aortic root is normal in size. IVC is normal in size and collapses >50% [place] [address] 2 D/M-MODE ECHOCARDIOGRAM Name: LESLEY MOSS Room: [address] IN [facility]#: [id number] Admission: 09/01/18 Attend Phys: Sherrell Balbuena, Discharge: Date of : 45 Date of Service: 09/01/18 1616 Report #: [id number] Pericardium There is no pericardial effusion. <Conclusion> Left ventricle is borderline dilated. There is normal left ventricular wall thickness. Left ventricular systolic function is mildly decreased. LVEF is 45%. Grade I - abnormal relaxation pattern. The right ventricle is normal size. The left atrium size is normal. Mild aortic valve sclerosis. No aortic regurgitation is present. There is no aortic valvular stenosis. The mitral valve is normal in structure. Trace mitral regurgitation. The tricuspid valve is normal in structure. IVC is normal in size and collapses >50% with inspiration. There is no pericardial effusion. There is normal LV segmental wall motion. <ELECTRONICALLY SIGNED> By: Dwayne Price MD, [facility] 09/01/18 1616 1616 1616 Dwayne Price MD, FACC /INF
[2018-09-01 16:55] VITALS: BP 159/78
[2018-09-01 20:09] VITALS: BP 128/67
[2018-09-02] VITALS: BP 123/57
[2018-09-02 04:00] VITALS: BP 141/72
--- NOTE | 2018-09-02 07:46 | CON ---
[address] [address] CONSULTATION Name: AJAYLESLEY GOMEZ Migdalia Room: [address] IN M.R.#: [id number] Admission: 09/01/18 Attend Phys: Sherrell Balbuena MD Discharge: Date of : 45 Report #: [id number] THIS REPORT FOR: //name// CC: Sherrell Manzo DO DATE OF SERVICE: 09/01/2018 PULMONARY CONSULTATION ATTENDING PHYSICIAN: Sherrell Balbuena M.D. PATIENT LOCATION: The patient is located in room 215. INDICATION FOR CONSULTATION: COPD, bronchospasm and hypoxemia. CLINICAL SUMMARY: The patient is a 73-year-old male, prior heavy smoker of 2 packs a day for about 100-120 pack years. The patient states he quit 4 months ago. The patient has had a 4-day history of increased cough with wheezing, shortness of breath. He was taking his albuterol nebulizer treatment at home. He is not on any oxygen at home. He denied any fever, chills or sweats, but had decreased appetite and increasing respiratory distress. He had some scant clear sputum and chest x-ray was negative in Dr. Szymanski's office. He does not get a flu shot because he states it makes him ill. He has not been exposed to anybody who has been sick or ill recently. No recent contacts or travel. Blood sugars have been up and down. He is insulin-dependent diabetic and his blood sugars have been labile. He denies any sore throat. Denies any esophageal reflux or sinus drainage, at least at this time. I was asked to see him. PAST MEDICAL HISTORY: He has a history of COPD. He was hospitalized here in 04/2018 for bronchitis and was seen by my associate, Dr. Pulliam. Chest x-ray was negative at that time. CT of the chest showed some patchy nodular lower lobe infiltrates; these were small subcentimeter and he has also had an MRSA infection and left olecranon bursitis and cellulitis that was treated with vancomycin and Zosyn and a septic arthritis back in 05/2018. He has also had some mild hyperlipidemia. ALLERGIES: He has no known medical allergies. MEDICATIONS: His medications at home included albuterol nebulizers 3-4 times a day. He is not on any oxygen at home, was not on any prednisone or antibiotics at home and then was also on Advair Diskus 500/50 one puff b.i.d. and also Stiolto 2 puffs daily. Currently in the hospital, he is on IV Solu-Medrol [address] [place] [address] CONSULTATION Name: LESLEY MOSS Room: [address] IN M.R.#: [id number] Admission: 09/01/18 Attend Phys: Sherrell Balbuena MD Discharge: Date of : 45 Report #: [id number] IV q. 6 hours and Levaquin 500 mg daily. He is also on sliding scale insulin and also Lovenox 40 mg daily. PAST SURGICAL HISTORY: Includes lens implants in the past. FAMILY HISTORY: Negative for premature cardiopulmonary disease. 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 Again, he has about a 100-120 pack year history of smoking, mostly 2 packs a day and denies any alcohol or illicit drug use. He has been retired, at home for about the past 8-10 years. He lives with his in [place], I believe. REVIEW OF SYSTEMS: A 14-point review of systems reviewed and negative, except for pertinent positives noted in the HPI. PHYSICAL EXAMINATION: GENERAL: This is a 73-year-old male who has had some labile blood sugars. Blood sugars have been between the 30s and 60s. He is eating his dinner now and feels a little bit more stable. He is alert and oriented. VITAL SIGNS: Blood pressure is 150/50, heart rate is 84, respirations 20-24 and saturation on 2 liters is 93% on room air. He was 88% at this time. Temperature is 36.6 degrees. He is 5 feet 10 inches tall, weight 105 kilograms or 228 pounds and BMI is 35. HEENT: He is edentulous. Mucous membranes are somewhat dry. NECK: Supple, without nodes. No increase in jugular venous pressure. CHEST: Shows inspiratory and expiratory wheezes with prolonged expiratory phase and tight expiratory wheezes. Some use of accessory muscles. CARDIOVASCULAR: Diminished heart tones, regular rate and rhythm. Heart rate is 84. ABDOMEN: Soft, without masses or megaly. EXTREMITIES: Without cyanosis, clubbing or edema. NEUROLOGIC: He moves all fours to commands at this time. LABORATORY DATA: Hemoglobin is 12, white count is 11,000. Normal differential. Influenza smear is pending at this time. Chemistry: Glucose again has been between 34, now up to 60. Sodium is 141, potassium is 3.6, bicarbonate is elevated at 34, BUN is 21, creatinine 1.0 and glucose is 55 on the chem panel. ALT is low normal at 18. GFR is 73. Previous blood gases show, on 2 liters, a pO2 of 72, pH of 7.37, pCO2 is 50, bicarbonate is 28 and sats are 93%. Chest x-ray, AP and lateral, from Dr. Szymanski's office, which I reviewed on our PACS here at [facility] shows COPD and hyperinflation. No definite pneumonia. May have some early interstitial infiltrates in both lower lobes. CT of the chest noted previously showing previous lower lobe minimal bronchitis, bronchiectasis with some subcentimeter nodules in the lower lobes. They were not suspicious for any malignant process. I do not have any [place] [address] CONSULTATION Name: LESLEY MOSS Room: [address] ADM IN M.R.#: [id number] Admission: 09/01/18 Attend Phys: Sherrell Balbuena MD Discharge: Date of : 45 Report #: [id number] IMPRESSION: 1. Moderately ubmjwe-cb-bukwki chronic obstructive pulmonary disease with exacerbation by acute bronchitis. 2. Previous chronic tobacco use, reformed. 3. Labile insulin-dependent diabetes mellitus. 4. Prior history of septic bursitis and immunosuppressed status. PLAN: The patient's COPD is not under good control. We will add some oral bronchodilators, may continue Stiolto on him at home, may need some inhaled steroids in the form of budesonide 0.5 mg at home daily after prednisone taper. Give him a short burst of steroids. He is on IV Levaquin at this time. I will see how he does with the antibiotics and treat his bronchitis. With his underlying sinus disease and esophageal reflux as the exacerbating factors, no evidence of CHF at least at this time. He will need some full PFTs as an outpatient when he stabilizes. He may be a candidate for pulmonary rehab if he considers this. Thanks again for allowing us to participate in this man's care. We will follow up along with you while he is in the hospital. We can use BiPAP if needed. I think his CO2 will come back down; I will recheck it tomorrow after his bronchospasm is under control. <ELECTRONICALLY SIGNED> By: Tru Rose MD 09/02/18 0746 1321 [id number] Rose MD /nt
[2018-09-02 08:52] VITALS: BP 133/64
[2018-09-02 09:42] LABS: BE -1.6 mmol/L (-2 to +3); PCO2 42.3 mmHg (35.0-45.0); PO2 63.3 mmHg (75.0-100.0); pH 7.366 (7.340-7.450)
[2018-09-02 11:59] VITALS: BP 124/68
[2018-09-02 20:10] VITALS: BP 110/83
[2018-09-03] VITALS (7 sets, daily range): BP systolic 133–173; BP diastolic 61–80
[2018-09-03 04:58] LABS: HEMATOCRIT 36.7 % (42.0-52.0); HEMOGLOBIN 11.9 gm/dL (14.0-18.0); MCHC 32.3 g/dL (28.0-37.0); MCV 92.8 fL (80.0-100.0); MPV 9.5 fl. (7.2-11.1); RBC 3.96 mil/uL (4.50-6.00); RDW-CV 14.8 % (10.5-14.5); WBC 16.7 thou/uL (4.0-11.0)
[2018-09-03 05:19] LABS: ALBUMIN 3.2 g/dL (3.4-5.0); CALCIUM 9.2 mg/dL (8.5-10.1); CREATININE 1.3 mg/dL (0.6-1.3); MAGNESIUM 1.9 mg/dL (1.8-2.4); POTASSIUM 4.7 mmol/L (3.5-5.1); TOTAL BILIRUBIN 0.2 mg/dL (<0.1-1.0); TOTAL PROTEIN 6.7 g/dL (6.4-8.2)
[2018-09-04] VITALS: BP 146/78
[2018-09-04 08:16] VITALS: BP 163/72
[2018-09-04 16:00] VITALS: BP 149/93
[2018-09-04 20:00] VITALS: BP 157/82
[2018-09-05 08:27] VITALS: BP 159/80
[2018-09-05] MEDS ORDERED: ALBUTEROL SULFAT2 MG PO (11:09)
[2018-09-05] MEDS ORDERED: PREDNISONE 10 M10 MG PO (11:09)
[2018-09-05] MEDS ORDERED: IPRAT-ALBUT 0.5-3 ML INH (11:09)
[2018-09-05] MEDS ORDERED: LEVAQUIN 500 M500 M2 PO (11:09)
[2018-09-05 12:02] VITALS: BP 159/80
== END 2018-09-05 13:19 | disposition home or self-care (01) | DRG 189 ==
LOC: M.2W 09:30
PROVIDERS: Internal Medicine Pulmonary Disease; ADMIT Internal Medicine
DX: J96.01 Acute respiratory failure with hypoxia (principal); J44.1 Chronic obstructive pulmonary disease with (acute) exacerbation; J44.0 Chronic obstructive pulmonary disease with (acute) lower respiratory infection; R65.10 Systemic inflammatory response syndrome (SIRS) of non-infectious origin without acute organ dysfunction; J96.02 Acute respiratory failure with hypercapnia; E11.649 Type 2 diabetes mellitus with hypoglycemia without coma; J20.9 Acute bronchitis, unspecified; E78.5 Hyperlipidemia, unspecified; Z96.1 Presence of intraocular lens; Z87.891 Personal history of nicotine dependence; Z79.4 Long term (current) use of insulin; Z79.51 Long term (current) use of inhaled steroids; Z79.899 Other long term (current) drug therapy; Z82.49 Family history of ischemic heart disease and other diseases of the circulatory system

== ENCOUNTER 2018-11-06 09:15 | Emergency (ER) | payer OTHER ==
[~2018-11-06] VITALS: Ht 172.7 cm; Wt 99.8 kg
[~2018-11-06 09:15] MED LIST changes: +ALBUTEROL SULFAT2 MG PO; +IPRAT-ALBUT 0.5-3 ML INH
[2018-11-06] MEDS ORDERED: VENTOLIN HFA 1818 GM INH (09:26)
[2018-11-06 10:17] LABS: HEMATOCRIT 41.3 % (42.0-52.0); HEMOGLOBIN 13.8 gm/dL (14.0-18.0); MCH 30.3 pg (26.0-34.0); MCHC 33.4 g/dL (28.0-37.0); MCV 90.9 fL (80.0-100.0); MPV 9.6 fl. (7.2-11.1); NUCLEATED RBCS 0 /100WBC; PLATELET COUNT* 148 thou/uL (150-400); RBC 4.54 mil/uL (4.50-6.00); RDW-CV 14.6 % (10.5-14.5); WBC 10.2 thou/uL (4.0-11.0)
[2018-11-06 10:25] LABS: CALCIUM 8.9 mg/dL (8.5-10.1); CREATININE 1.1 mg/dL (0.6-1.3); POTASSIUM 4.5 mmol/L (3.5-5.1)
[2018-11-06 10:29] LABS: ALBUMIN 3.2 g/dL (3.4-5.0); TOTAL BILIRUBIN 0.3 mg/dL (<0.1-1.0); TOTAL PROTEIN 6.7 g/dL (6.4-8.2)
[2018-11-06 11:46] LABS: ABSOLUTE EOSINOPHILS 0.2 thou/uL (0.0-0.7); ABSOLUTE MONOCYTES 0.4 thou/uL (0.0-1.2); ABSOLUTE NEUTROPHILS 7.5 thou/uL (1.6-8.1); PLATELET ESTIMATE DECREASED
[2018-11-06] MEDS ORDERED: ZOFRAN ODT4 MG SUBLING (12:07)
[2018-11-06] MEDS ORDERED: NORCO 5-325 TA1 EACH PO (12:07)
[2018-11-06 12:34] VITALS: BP 164/90
== END 2018-11-06 12:35 | disposition home or self-care (01) ==
LOC: M.ERS 09:15
PROVIDERS: Personal Emergency Response Attendant
DX: M54.6 Pain in thoracic spine (principal); M54.5 Low back pain; J44.9 Chronic obstructive pulmonary disease, unspecified; E11.9 Type 2 diabetes mellitus without complications; E78.5 Hyperlipidemia, unspecified; F17.210 Nicotine dependence, cigarettes, uncomplicated; Z87.01 Personal history of pneumonia (recurrent)

== ENCOUNTER 2018-11-12 11:15 | Inpatient (IN) | payer OTHER ==
[~2018-11-12] VITALS: Ht 172.7 cm; Wt 104.3 kg
--- NOTE | ~2018-11-12 | CON ---
[address] [address] CONSULTATION Name: KEVEN MOSS Room: [address] IN M.R.#: [id number] Admission: 11/12/18 Attend Phys: Omar Donohue MD Discharge: Date of : 45 Report #: [id number] THIS REPORT FOR: //name// CC: Omar Szymanski DATE OF SERVICE: 11/13/2018 HISTORY OF PRESENT ILLNESS: The patient is being seen in consultation at the request of Dr. Donohue for evaluation of an abnormal CT scan, with an interpretation by the radiologist of small nodular masses in the posterior medial right lower lung. These had increased in size when compared to the previous imaging study from 09/01/2018. The patient was aware of imaging abnormalities. 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 The patient reported today that he had not had any recent fever, but he had rigors on several occasions in the 2 months since he was last discharged from [facility] after having pneumonia. He has had several episodes of pneumonia in the past. He is a gentleman who has underlying diagnosis of COPD and has a long smoking history, smoking anywhere between 2-1/2 packs per day for many years, but he stopped smoking 4 months ago. Has a diagnosis of COPD. After discharge from the hospital 2 months ago, the patient reports that he felt reasonably good, but he still was quite dyspneic. He denies any hemoptysis or sputum production. He was not very hungry at home, but he had not been losing weight. Here in the hospital, with high oxygen flow, he said that his appetite is terrific and he is surprised he is not gaining weight. Besides COPD and multiple episodes of bronchitis, the patient has had bursitis, septic arthritis and mild hyperlipidemia. SOCIAL HISTORY: He is and lives with his [place] farm. They have horses out in the pasture and he has a pet dog, but there are no other unusual pets, and he denies any contact with wild animals. REVIEW OF SYSTEMS: Negative for any recent headache, visual changes. No purulent or watery nasal discharge, sores in the mouth, swallowing difficulties, frequent heartburn, nausea, vomiting, crampy abdominal pain, typically passes stool once a day or once every other day. He typically has nocturia once per night. He is right handed and does not have any significant arthralgias. PHYSICAL EXAMINATION: Reveals an alert, pleasant gentleman sitting up on the side of the bed, in the midst of eating supper. He put aside his salad and talked with me. 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 He had a resting tachypnea. His cough is slightly "bronchitic" on command. Posterior lung mann reveal scattered rhonchi, but he had no musical wheezes or pleural friction rubs. Air movement sounds are [place] [address] CONSULTATION Name: KEVEN MOSS Room: [address] IN [facility]#: [id number] Admission: 11/12/18 Attend Phys: Omar Donohue MD Discharge: Date of : 45 Report #: [id number] mann. Anteriorly, his heart reveals normal rate and rhythm without murmur. He had no lymphadenopathy in the cervical, clavicular, axillary region. His abdomen was obese and he had an umbilical hernia. His voice was raspy. Lower extremities reveal bilateral pitting edema, approximately 5-7 mm pitting bilaterally above his sock lines. Light touch was intact in the great toes and the fifth toes. MEDICAL DATA: From 03/19/2016, CT angiogram of the chest did not reveal any clear-cut nodules, but he did have some prominence of nodes medial to the left hilum and mild adenopathy, possibly related to left-sided pneumonitis. From 11/12/2018, a chest x-ray revealed chronic fibrotic scarring in both lungs without evidence of pneumonia or pneumothorax. From 11/12/2018, CT scan of the chest with IV contrast and pulmonary angiogram revealed small nodular masses that had increased in the posterior medial right lower lung compared to the previous study from 09/01/2018. Nodular infiltrate was said to have this appearance. There is no significant pleural effusion and no other new processes. From 09/01/2018, I reviewed Dr. Rose's consult note. At that time, the patient's COPD was felt not to be under good control. He was given steroids and IV Levaquin. LABORATORY DATA: I reviewed laboratory studies. Today, electrolytes are normal. BUN is 25, creatinine 1.0, and glucose 140. AST and ALT were both normal. Total bilirubin is 0.2 and calcium 8.6. Hemoglobin is 13.1, hematocrit 39.1%, red cell indices were normal, and platelet count 134,000. ASSESSMENT AND PLAN: The cause for the patient's nodular densities is not clear. He is a longtime smoker and certainly lung cancer could be a cause. Lymphoproliferative processes are also possibility. I will have blood drawn to check for immunodeficiency, and the patient has been on steroids. He probably will require VATS procedure or radiologically-guided biopsy of one of the nodules. By: [id number] Price MD /kia
[~2018-11-12 11:15] MED LIST changes: +NORCO 5-325 TA1 EACH PO; +ZOFRAN ODT4 MG SUBLING
[2018-11-12 13:38] LABS: HEMATOCRIT 41.3 % (42.0-52.0); HEMOGLOBIN 13.5 gm/dL (14.0-18.0); MCH 29.9 pg (26.0-34.0); MCHC 32.7 g/dL (28.0-37.0); MCV 91.4 fL (80.0-100.0); MPV 10.5 fl. (7.2-11.1); RBC 4.52 mil/uL (4.50-6.00); RDW-CV 14.6 % (10.5-14.5); WBC 9.8 thou/uL (4.0-11.0)
[2018-11-12 13:51] LABS: ALBUMIN 3.4 g/dL (3.4-5.0); CALCIUM 9.3 mg/dL (8.5-10.1); CREATININE 1.2 mg/dL (0.6-1.3); POTASSIUM 4.7 mmol/L (3.5-5.1); TOTAL BILIRUBIN 0.2 mg/dL (<0.1-1.0); TOTAL PROTEIN 6.8 g/dL (6.4-8.2)
[2018-11-12 17:18] VITALS: BP 169/84
[2018-11-12 20:00] VITALS: BP 169/98
[2018-11-13 04:38] LABS: HEMATOCRIT 39.1 % (42.0-52.0); HEMOGLOBIN 13.1 gm/dL (14.0-18.0); MCH 30.2 pg (26.0-34.0); MCHC 33.4 g/dL (28.0-37.0); MCV 90.3 fL (80.0-100.0); MPV 10.4 fl. (7.2-11.1); NUCLEATED RBCS 0 /100WBC; PLATELET COUNT* 134 thou/uL (150-400); RBC 4.33 mil/uL (4.50-6.00); RDW-CV 14.6 % (10.5-14.5); WBC 9.9 thou/uL (4.0-11.0)
[2018-11-13 04:47] LABS: CALCIUM 8.6 mg/dL (8.5-10.1); POTASSIUM 3.8 mmol/L (3.5-5.1)
--- NOTE | 2018-11-13 04:57 | NUR ---
ASSUMED CARE OF PT AT 1900 PT ALERT AND ORIENTED X4 VS AND ASSESSMENT STABLE. PT HAD PAIN MEDS THREE TIMES AND THEN SLEPT IN BTWEEN. WILL CONTINUE PLAN OF CARE.
[2018-11-13 06:17] LABS: ABSOLUTE EOSINOPHILS 0.2 thou/uL (0.0-0.7); ABSOLUTE LYMPHOCYTES 2.6 thou/uL (0.8-5.3); ABSOLUTE MONOCYTES 0.4 thou/uL (0.0-1.2); ABSOLUTE NEUTROPHILS 6.7 thou/uL (1.6-8.1); ANISOCYTOSIS 1+; PLATELET ESTIMATE DECREASED
[2018-11-13 06:18] LABS: POIKILOCYTOSIS 1+
[2018-11-13 07:30] VITALS: BP 151/73
[2018-11-13 15:30] VITALS: BP 156/66
--- NOTE | 2018-11-13 16:54 | NUR ---
ASSESSMENT COMPLETE. PT ALERT AND ORIENTED X4. PT GIVEN PRN PAIN MEDICATION NEEDED. VSS. ACCUCHECK ACHS. PT IS UP STANDBY ASSIST. WAITING FOR ONCOLOGY CONSULT, CALLED AGAIN TODAY. IV FLUIDS DC'D. PT HAS NO CONCERNS AT THIS TIME. SEE ASSESSMENT AND VITALS FOR OTHER DETAILS. CALL LIGHT WITHIN REACH, WILL CONTINUE PLAN OF CARE
[2018-11-13 20:20] VITALS: BP 145/92
[2018-11-14 03:55] LABS: ABSOLUTE EOSINOPHILS 0.3 thou/uL (0.0-0.7); ABSOLUTE LYMPHOCYTES 1.9 thou/uL (0.8-5.3); ABSOLUTE MONOCYTES 0.6 thou/uL (0.0-1.2); ABSOLUTE NEUTROPHILS 5.7 thou/uL (1.6-8.1); BASOPHILS 0.4 %; EOSINOPHILS 3.3 %; HEMATOCRIT 39.8 % (42.0-52.0); HEMOGLOBIN 13.2 gm/dL (14.0-18.0); LYMPHOCYTES 22.3 %; MCH 29.9 pg (26.0-34.0); MCHC 33.1 g/dL (28.0-37.0); MCV 90.5 fL (80.0-100.0); MONOCYTES 7.3 %; MPV 9.9 fl. (7.2-11.1); NUCLEATED RBCS 0 /100WBC; PLATELET COUNT* 136 thou/uL (150-400); POLYS 66.7 %; RDW-CV 14.9 % (10.5-14.5); WBC 8.5 thou/uL (4.0-11.0)
[2018-11-14 04:04] LABS: CALCIUM 8.9 mg/dL (8.5-10.1); CREATININE 1.1 mg/dL (0.6-1.3); POTASSIUM 4.3 mmol/L (3.5-5.1)
[2018-11-14 06:00] VITALS: BP 144/73
--- NOTE | 2018-11-14 06:42 | NUR ---
Alert and oriented x 4. He has been steady walking and getting up on his own. He has voided adequately. Vitals have been stable. He is 92-94% on roomair. He has been having back and rib/chest pain and rating about 4 or 5. He's had IV pain meds x 2 this shift and oral pain med x 2 this shift. He had nausea x 1 this am at 0400. He did sleep a short while this shift.
[2018-11-14 07:22] VITALS: BP 143/83
[2018-11-14 15:47] VITALS: BP 125/71
--- NOTE | 2018-11-14 16:11 | NUR ---
ASSESSMENT COMPLETE. PAIN MEDICATIONS CHANGED TODAY, PT TOLERATING AND DENIES NAUSEA. LIDOCAINE PATCH ON BACK. PT HAS LUNG BIOPSY TOMORROW, NPO AFTER MIDNIGHT. PULMONARY CONSULT. PT IS ON ROOM AIR, VSS. PT UP AD SHANTANU WITH STEADY GAIT. PT HAD SHOWER TODAY. IV IN RIGHT FA, SALINE LOCKED. ACCU CHECK ACHS. PT DENIES ANY CONCERNS AT THIS TIME. SEE ASSESSMENT AND VITALS FOR OTHER DETAILS. CALL LIGHT WITHIN REACH, WILL CONTINUE PLAN OF CARE
[2018-11-14 17:05] LABS: IgA 208 mg/dL (61-437); IgG 692 mg/dL (700-1600); IgM 93 mg/dL (15-143)
[2018-11-14 20:20] VITALS: BP 164/88
[2018-11-15] VITALS (7 sets, daily range): BP systolic 114–140; BP diastolic 57–68
--- NOTE | 2018-11-15 04:48 | NUR ---
Alert and oriented x 4. He has been sayign he feels bloated and his abdomen is distended. Portable Xray of abdomen was done and it didn't show anything. He did have miralax,colace at bedtime and some prune juice. He did pass some gas but nothing more he stated. He refused anything for pain but did have tylenol x 1 for temp of 99.0. He does have active bowel sounds x 4 and he also has an obvious umbilical hernia that he's had for years he states. He has had nothing by mouth since 0030. He is going to have a CT guided lung biopsy today. He slept for about 3 or 4 hors tonight.
[2018-11-15 05:02] LABS: ABSOLUTE BASOPHILS 0.1 thou/uL (0.0-0.2); ABSOLUTE EOSINOPHILS 0.2 thou/uL (0.0-0.7); ABSOLUTE LYMPHOCYTES 1.8 thou/uL (0.8-5.3); ABSOLUTE MONOCYTES 0.8 thou/uL (0.0-1.2); ABSOLUTE NEUTROPHILS 7.4 thou/uL (1.6-8.1); BASOPHILS 0.5 %; EOSINOPHILS 2.4 %; HEMATOCRIT 39.6 % (42.0-52.0); HEMOGLOBIN 13.2 gm/dL (14.0-18.0); LYMPHOCYTES 17.2 %; MCHC 33.2 g/dL (28.0-37.0); MCV 90.4 fL (80.0-100.0); MONOCYTES 7.5 %; MPV 9.7 fl. (7.2-11.1); NUCLEATED RBCS 0 /100WBC; PLATELET COUNT* 136 thou/uL (150-400); POLYS 72.4 %; RBC 4.38 mil/uL (4.50-6.00); RDW-CV 14.6 % (10.5-14.5); WBC 10.2 thou/uL (4.0-11.0)
[2018-11-15 05:36] LABS: CALCIUM 8.9 mg/dL (8.5-10.1); CREATININE 1.1 mg/dL (0.6-1.3); POTASSIUM 4.4 mmol/L (3.5-5.1)
--- NOTE | 2018-11-15 14:33 | NUR ---
PT.BEING DISCHARGED. KNOWN FROM PREVIOUS HOSPITAL ADMISSION. HE LIVES WITH HIS . CHILDREN ARE SUPPORTIVE WELL. HE SAID HIS PAIN IS CONTROLLED WITH ORAL PAIN MEDS. HE DENIED ANY DISCHARGE NEEDS.
--- NOTE | 2018-11-15 15:36 | NUR ---
PT GIVEN DISCHARGE INFORMATION, CARE NOTES, AND PRESCRIPTIONS. IV REMOVED. PT GIVEN INFORMATION ON FOLOW UPS. PT LEFT VIA WHEELCHAIR WITH NURSING STAFF TO HOME. FALL RISK PRECAUTIONS IN PLACE. HOURLY ROUNDING COMPLETED.
--- NOTE | 2018-11-16 11:13 | CON ---
[address] [address] CONSULTATION Name: AJAYLESLEY Migdalia Room: [address] IN M.R.#: [id number] Admission: 11/12/18 Attend Phys: Omar Donohue MD Discharge: 11/15/18 Date of : 45 Report #: [id number] THIS REPORT FOR: //name// CC: Omar Szymanski DO DATE OF SERVICE: 11/15/2018 REQUESTING PHYSICIAN: Omar Donohue MD REASON FOR CONSULTATION: Pulmonary nodules. DISCUSSION: The patient is a 73-year-old man who has a history of underlying COPD and tobacco abuse. His last cigarette was about 4 months ago. He has smoked upwards of 2-1/2 packs of cigarettes per day in the past. Our group did see him when he was hospitalized earlier this year and was treated for COPD exacerbation at that time. That was in early August. He was admitted several days ago because of severe pain. 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 It startled him as he threw the snake away from him, he fell backwards, hit his truck and then landed on the ground. He has continued to have very severe pain. He is having difficulty trying to manage because of that. Apparently, he was directly admitted then by Dr. Donohue at his family physician's request. With the significant pain, he has had more trouble breathing. It hurts to cough. He also has been complaining of some pain in the right side of his chest. He had a CT angiogram done of his chest when he was in the ED on 11/12/2018. No PE was seen. He was noted to have developed some "nodular masses" in the right lower lung field. These were new relative to studies done in early August. Because of that, we were asked to see him. In the interim, he has also been seen by Dr. Price. A CT-guided biopsy was requested that has been canceled. He is a longtime smoker as noted. He does maverick dogs in the morning. He also has a nebulizer at home, typically does those treatments about every 4 hours and he supplements that with a rescue inhaler. He is chronically short of breath. He has been much worse since he fell. It does hurt to take in a deep breath or try to cough. He is not aware of any fevers. He has not had any hemoptysis. He has not had any PFTs done. He notes he was told that would be scheduled. However, he notes the hospital has contacted him twice and they would be calling him back, but that has not yet transpired. He has not seen a shoes salesperson as an outpatient. He has no prior history of known thromboembolic disease. He has had some episodes of pneumonia in the past. He has also [place] [address] CONSULTATION Name: LESLEY MOSS Room: [address] IN M.R.#: [id number] Admission: 11/12/18 Attend Phys: Omar Donohue MD Discharge: 11/15/18 Date of : 45 Report #: [id number] PAST MEDICAL HISTORY: Besides his COPD and recurrent episodes of lower respiratory tract infections, he does have a history of diabetes mellitus and dyslipidemia. He has also had lumbar spine surgery, history of hypertension, lens implants. 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 Was smoking a pack per day at the time that he quit. However, when he was driving his truck, he would smoke up to 2-1/2 packs of cigarettes per day. FAMILY HISTORY: Negative for lung disease. It is positive for heart disease. REVIEW OF SYSTEMS: ROS was done. No positives except as above. Overall, he does feel like his breathing was doing somewhat better before he fell. He has had the continued severe back pain, notes in the middle of his back. Also, pain on the right side of his chest. It is worse with moving, coughing and taking in a deep breath. He has not had any sputum production and he notes part of that is because he will not cough. He has chronic difficulty swallowing. He notes he had an EGD done within the last 1-2 months. It was done in outpatient surgical center, he has not yet heard those results. Unknown if he was dilated or not. No hemoptysis, no hematemesis, no diarrhea. He has not had any nausea or vomiting. Appetite has been fairly good. He does believe overall his weight has been stable. He notes it tends to fluctuate within about 5 pounds of each other. He is not aware of any recent fevers at home. He tends towards a little lower extremity edema. Not any true syncopal episodes, no palpitations. PHYSICAL EXAMINATION: GENERAL APPEARANCE: A large man. He looks uncomfortable, particularly when he moves or is asked to take in a deep breath. HEENT: Head is normocephalic. Sclerae nonicteric. Mucous membranes are moist. NECK: Large, but supple without any definite adenopathy, no JVD is noted. HEART: Tones are distant, but are regular. No S3 is heard. LUNGS: Show breath sounds to be mildly diminished. He has few late expiratory wheezes heard. Excursion is equal. Cannot reproduce any pain with palpation over the right or left anterior chest wall. No definite ecchymotic areas are noted. He has a well-healed scar present over his lumbar spine. ABDOMEN: Protuberant, but soft. Does have a small umbilical hernia noted. No abdominal discomfort. EXTREMITIES: He has no clubbing. Radial pulses are present. Lower extremities: He has 1-2+ edema. No calf tenderness. SKIN: Warm and dry. NEUROLOGIC: He is alert and oriented x 3. LABORATORY AND X-RAY FINDINGS: CT scans were reviewed. He has also had several older studies here are available for comparison purposes. On the scan done on 11/12/2018, he does have some mild adenopathy noted. By size criteria, it does not appear pathologic. Has developed nodules seen in right [place] [address] CONSULTATION Name: LESLEY MOSS Room: [address] IN [facility]#: [id number] Admission: 11/12/18 Attend Phys: Omar Donohue MD Discharge: 11/15/18 Date of : 45 Report #: [id number] these are new relative to what was seen several months ago. No pleural effusions are noted. On his chemistry, BUN is 27, creatinine 1.1, potassium 4.4. ALT 25. ProBNP just under 1200. White blood cell count 10,200, hemoglobin 13.2, hematocrit 39.6, platelets 136,000. He did have blood gases done in August and he had no hypercapnia noted. Echocardiogram done in August revealed EF mildly decreased at 45%. He had grade 1 diastolic dysfunction. RV was normal. Had trace mitral regurgitation. There was normal LV segmental wall motion. IMPRESSION: 1. Small right lower lobe nodules. Some are new, mildly increased in size from older studies. Significance is not clear. Overall, however, they are relatively small. Only one appears size that PET scanning may be helpful. Given the size and the location, it would be very difficult lesions to attempt to biopsy. 2. Chronic obstructive pulmonary disease, baseline. I suspect he probably has severe disease. He is actively bronchospastic on exam. With the severe back pain and musculoskeletal discomfort that he is having, it is also compromising his pulmonary function. 3. Complaints of dysphagia. Reportedly, he has had an outpatient EGD, results unknown. He cannot recall if he was dilated or not. 4. Diabetes mellitus type 2. 5. Mild decrease in left ventricular function. RECOMMENDATIONS: 1. Continue with aggressive bronchodilator therapy while he is here in the hospital. 2. We will also have him start IS. 3. Discussed with the patient. After reviewing his films, at this point I would not pursue a biopsy. My understanding is also that IR has declined at this time. 4. I would recommend a followup CT scan in 2-4 months. Consider PET scan imaging if findings do not improve or worsen. 5. Once he is over this acute event, would recommend full pulmonary function studies. What his baseline lung function is may certainly have a bearing on what types of procedures or operative procedures potentially could be done in the future. 6. Continue to work on pain control. 7. Continue with smoking cessation. <ELECTRONICALLY SIGNED> By: Cordelia Chacon MD 11/16/18 1113 1243 [id number] Chacon MD /nt
[2018-11-17 17:07] LABS: GLOBULIN TOTAL 2.4 g/dL (2.2-3.9); M-SPIKE Not Observed g/dL (Not Observed)
== END 2018-11-15 15:38 | disposition home or self-care (01) | DRG 552 ==
LOC: M.3W 11:15
PROVIDERS: Internal Medicine Hematology & Oncology; ADMIT Internal Medicine
DX: M54.9 Dorsalgia, unspecified (principal); J43.9 Emphysema, unspecified; R91.1 Solitary pulmonary nodule; E11.65 Type 2 diabetes mellitus with hyperglycemia; R13.10 Dysphagia, unspecified; W19.XXXA Unspecified fall, initial encounter; Y93.89 Activity, other specified; Y92.89 Other specified places as the place of occurrence of the external cause; Y99.8 Other external cause status; Z79.1 Long term (current) use of non-steroidal anti-inflammatories (NSAID); Z79.899 Other long term (current) drug therapy; Z87.891 Personal history of nicotine dependence

== ENCOUNTER 2018-12-23 13:41 | Inpatient (IN) | payer OTHER ==
[~2018-12-23] VITALS: Ht 172.7 cm; Wt 103.6 kg
[2018-12-23 13:52] VITALS: BP 160/80
[2018-12-23] MEDS ORDERED: OXYCODON-ACETA1 EAC1 PO (13:58)
[2018-12-23] MEDS ORDERED: BACLOFEN 10MG T10 MG PO (14:00)
[2018-12-23] MEDS ORDERED: LASIX 20 MG TAB20 MG PO (14:00)
[2018-12-23] MEDS ORDERED: IBUPROFEN 200200 M1 PO (14:00)
[2018-12-23] MEDS ORDERED: POTASSIUM20 PO (14:00)
[2018-12-23 14:25] LABS: ABSOLUTE LYMPHOCYTES 1.4 thou/uL (0.8-5.3); ABSOLUTE MONOCYTES 0.9 thou/uL (0.0-1.2); ABSOLUTE NEUTROPHILS 8.2 thou/uL (1.6-8.1); BASOPHILS 0.4 %; EOSINOPHILS 8.6 %; HEMATOCRIT 38.7 % (42.0-52.0); HEMOGLOBIN 12.5 gm/dL (14.0-18.0); LYMPHOCYTES 12.1 %; MCH 29.5 pg (26.0-34.0); MCHC 32.2 g/dL (28.0-37.0); MCV 91.6 fL (80.0-100.0); MONOCYTES 8.1 %; MPV 9.5 fl. (7.2-11.1); NUCLEATED RBCS 0 /100WBC; PLATELET COUNT* 164 thou/uL (150-400); POLYS 70.8 %; RBC 4.23 mil/uL (4.50-6.00); RDW-CV 14.5 % (10.5-14.5); WBC 11.6 thou/uL (4.0-11.0)
[2018-12-23 14:35] LABS: PROTIME 10.2 Seconds (9.20-11.50)
[2018-12-23 14:36] LABS: ANION GAP 7 mmol/L (7-16); BUN 17 mg/dL (7-18); CALCIUM 8.8 mg/dL (8.5-10.1); CHLORIDE 103 mmol/L (98-107); CO2 33 mmol/L (21-32); CREATININE 1.1 mg/dL (0.6-1.3); GLUCOSE 109 mg/dL (70-99); POTASSIUM 4.3 mmol/L (3.5-5.1); SODIUM 143 mmol/L (136-145)
[2018-12-23 14:38] LABS: BE -0.1 mmol/L (-2 to +3); PCO2 42.5 mmHg (35.0-45.0); pH 7.387 (7.340-7.450)
[2018-12-23 14:44] LABS: ALBUMIN 3.6 g/dL (3.4-5.0); ALKALINE PHOSPHATASE 87 U/L (46-116); LIPASE 28 U/L (73-393); NT-PRO BRAIN NAT PEPTIDE 2412 pg/mL (<300); SGOT 12 U/L (15-37); SGPT 23 U/L (30-65); TOTAL BILIRUBIN 0.3 mg/dL (<0.1-1.0); TOTAL PROTEIN 6.8 g/dL (6.4-8.2); TROPONIN-I LEVEL <0.06 ng/mL (<0.06)
[2018-12-23 17:46] VITALS: BP 145/67
[2018-12-23 18:00] VITALS: BP 160/60
[2018-12-23 20:00] VITALS: BP 141/64
[2018-12-24 00:30] VITALS: BP 154/97
[2018-12-24 04:00] VITALS: BP 174/89
[2018-12-24 05:19] LABS: HEMATOCRIT 40.9 % (42.0-52.0); HEMOGLOBIN 13.1 gm/dL (14.0-18.0); MCH 29.4 pg (26.0-34.0); MPV 9.8 fl. (7.2-11.1); RBC 4.44 mil/uL (4.50-6.00); RDW-CV 14.4 % (10.5-14.5); WBC 11.6 thou/uL (4.0-11.0)
[2018-12-24 05:33] LABS: MAGNESIUM 1.7 mg/dL (1.8-2.4); POTASSIUM 4.3 mmol/L (3.5-5.1)
[2018-12-24 07:45] VITALS: BP 151/77
--- NOTE | 2018-12-24 09:41 | EKG ---
[place] [address] ELECTROCARDIOGRAM REPORT Name: LESLEY MOSS Room: [place] [address] ADM IN .R.#: [id number] Admission: 12/23/18 Attend Phys: Sherrell Balbuena MD Discharge: Date of : 45 Report #: [id number] THIS REPORT FOR: //name// [facility] ED Test Date: 2018-12-23 Test Time: 14:05:43 Pat Name: LESLEY MOSS Department: Room: [facility] Gender: M Interventional Nurse: : 1945 Requested By: Lesley Lozano Order Number: [id number] MD: Rell Austin Measurements Intervals [place] Rate: 87 P: 32 VA: 162 QRS: -33 QRSD: 154 T: 10 QT: 412 QTc: 496 Interpretive Statements Sinus rhythm Right bundle branch block Left ventricular hypertrophy Borderline prolonged QT interval Compared to ECG 07/09/2018 08:27:08 Left ventricular hypertrophy now present Electronically Signed On 12-24-2018 9:41:45 CDT by Rell Austin [email or web address] <ELECTRONICALLY SIGNED> By: Rell Austin MD, [facility] 12/24/18 0941 1405 1405 Rell Austin MD, [facility] /EPI
[2018-12-24 12:23] VITALS: BP 133/57
--- NOTE | 2018-12-24 15:29 | 2DMMODE ---
[place] [address] 2 D/M-MODE ECHOCARDIOGRAM Name: LESLEY MOSS Room: [facility] ADM IN [facility]#: [id number] Admission: 12/23/18 Attend Phys: Sherrell Balbuena, Discharge: Date of : 45 Date of Service: 12/24/18 1529 Report #: [id number] THIS REPORT FOR: //name// APPROVED REPORT Study performed: 12/24/2018 10:21:59 EXAM: Comprehensive 2D, Doppler, and color-flow Echocardiogram Patient Location: In-Patient Room #: [facility] Status: routine BSA: 2.20 HR: 95 bpm BP: 151/77 mmHg Rhythm: NSR Other Information Study Quality: Good Indications Dyspnea 2D Dimensions IVSd: 11.03 (7-11mm) LVOT Diam: 23.17 (18-24mm) LVDd: 64.63 mm PWd: 9.00 (7-11mm) Ascending Ao: 38.61 (22-36mm) LVDs: 51.75 (25-40mm) Aortic Root: 33.03 mm Volumes Left Atrial Volume (Systole) LA ESV Index: 22.10 mL/m2 Aortic Valve AoV Peak Javier.: 1.44 m/s AO Peak Gr.: 8.25 mmHg LVOT Max P.90 mmHg AO Mean Gr.: 4.68 mmHg LVOT Mean P.40 mmHg LVOT Max V: 1.11 m/s AO V2 VTI: 24.95 cm LVOT Mean V: 0.71 m/s ZULEYMA (VTI): 3.72 cm2 LVOT V1 VTI: 21.99 cm Mitral Valve E/A Ratio: 0.64 MV Decel. Time: 62.16 ms MV E Max Javier.: 0.73 m/[place] [address] 2 D/M-MODE ECHOCARDIOGRAM Name: LESLEY MOSS Room: [address] IN .R.#: [id number] Admission: 12/23/18 Attend Phys: Sherrell Balbuena, Discharge: Date of : 45 Date of Service: 12/24/18 1529 Report #: [id number] PHT: 18.03 ms MVA (PHT): 12.20 cm2 TDI E/Lateral E': 8.11 E/Medial E': 8.11 Medial E' Javier.: 0.09 m/s Lateral E' Javier.: 0.09 m/s Pulmonary Valve PV Peak Javier.: 0.99 m/s PV Peak Gr.: 3.94 mmHg Left Ventricle The left ventricle is normal size. moderate to severe inferior hypokinesis There is normal left ventricular wall thickness. Left ventricular systolic function is mildly decreased. LVEF is 40-45%. This study is not technically sufficient to allow evaluation of the LV diastolic function due to atrial fibrillation. Right Ventricle The right ventricle is normal size. The right ventricular systolic function is normal. Atria The left atrium size is normal. The right atrium size is normal. Aortic Valve Mild aortic valve sclerosis. No aortic regurgitation is present. There is no aortic valvular stenosis. Mitral Valve The mitral valve is normal in structure. There is no mitral valve regurgitation noted. No evidence of mitral valve stenosis. Tricuspid Valve The tricuspid valve is normal in structure. Trace tricuspid regurgitation. Unable to assess PA pressure. Pulmonic Valve The pulmonary valve is normal in structure. There is no pulmonic valvular regurgitation. Great Vessels The aortic root is normal in size. IVC is normal in size and collapses >50% [place] [address] 2 D/M-MODE ECHOCARDIOGRAM Name: LESLEY MOSS Room: [address] IN [facility]#: [id number] Admission: 12/23/18 Attend Phys: Sherrell Balbuena, Discharge: Date of : 45 Date of Service: 12/24/18 1529 Report #: [id number] Pericardium There is no pericardial effusion. <Conclusion> LVEF is 40-45%. moderate to severe inferior hypokinesis Grade I - abnormal relaxation pattern. There is no aortic valvular stenosis. Mild aortic valve sclerosis. No aortic regurgitation is present. <ELECTRONICALLY SIGNED> By: Rell Austin MD, FAC 12/24/18 1529 1529 1529 Rell Austin MD, FACC /INF
[2018-12-24 15:45] VITALS: BP 128/77
[2018-12-24 20:00] VITALS: BP 131/70
[2018-12-25] VITALS: BP 147/75
[2018-12-25 04:00] VITALS: BP 146/65
[2018-12-25 07:15] VITALS: BP 149/85
[2018-12-25 12:17] VITALS: BP 152/65
[2018-12-25 16:21] VITALS: BP 122/78
[2018-12-25 20:00] VITALS: BP 148/71
[2018-12-26] VITALS: BP 153/72
[2018-12-26 04:00] VITALS: BP 152/67
[2018-12-26 05:20] LABS: ANION GAP 4 mmol/L (7-16); BUN 32 mg/dL (7-18); CALCIUM 9.1 mg/dL (8.5-10.1); CHLORIDE 104 mmol/L (98-107); CHOLESTEROL 118 mg/dL (<200); CO2 35 mmol/L (21-32); CREATININE 1.3 mg/dL (0.6-1.3); GLUCOSE 208 mg/dL (70-99); HDL CHOLESTEROL 44 mg/dL (>40); LDL CHOLESTEROL 58 mg/dL (<100); POTASSIUM 3.8 mmol/L (3.5-5.1); SODIUM 143 mmol/L (136-145); TC:HDL 2.7 Ratio (Not establshd); TRIGLYCERIDE 84 mg/dL (<150); VLDL 17 mg/dL (<40)
[2018-12-26 05:35] LABS: SERUM ASSESSMENT CLEAR
[2018-12-26 07:05] VITALS: BP 170/83
--- NOTE | 2018-12-26 10:09 | CON ---
[address] [address] CONSULTATION Name: LESLEY MOSS Migdalia Room: [place] [address] ADM IN .R.#: [id number] Admission: 12/23/18 Attend Phys: Sherrell Balbuena MD Discharge: Date of : 45 Report #: [id number] THIS REPORT FOR: //name// CC: Sherrell Szymanski DO DATE OF SERVICE: 12/25/2018 CARDIOLOGY CONSULTATION HISTORY OF PRESENT ILLNESS: The patient is a 73-year-old white male, with a history of COPD, who I was asked to see in the hospital today because of shortness of breath. The patient has an extensive past medical history. He smoked 3 packs a day for 60 years. He quit about 3 months ago. He has a history of COPD and uses a nebulizer at home. He was admitted 2 days ago with shortness of breath and a cough. He has had lower extremity edema. He denies a history of heart disease. He apparently had a stress test years ago. He denies any recent chest pain, palpitations, or syncope. PAST MEDICAL/SURGICAL HISTORY: He has had back surgery. He does have chronic back pain. He has had surgery on his left arm for an accident. He has diabetes. No history of hypertension and hyperlipidemia. HOME MEDICATIONS: Consist of albuterol inhaler, baclofen, Lasix, insulin, omeprazole, oxycodone, potassium, and Flomax. ALLERGIES: He has no known drug allergies. FAMILY HISTORY: Positive for diabetes. SOCIAL HISTORY: He is . He and his live in [place]. 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 No alcohol abuse. REVIEW OF SYSTEMS: He has had no history of stroke or peptic ulcer disease. He does have an umbilical hernia. He has had a kidney stone. No cancer. No chronic skin condition. No psychiatric illness. PHYSICAL EXAMINATION: GENERAL: Revealed a large Elderly male, lying in bed, appeared in no acute distress. VITAL SIGNS: His blood pressure is 140/80, pulse is 90, and he is afebrile. HEENT: He is anicteric. Conjunctivae are pink. Mucous members are moist. NECK: Veins does not appear distended. CHEST: Revealed distant breath sounds. CARDIOVASCULAR: Regular rate and rhythm. [place] [address] CONSULTATION Name: LESLEY MOSS Migdalia Room: [address]#: [id number] Admission: 12/23/18 Attend Phys: Sherrell Balbuena MD Discharge: Date of : 45 Report #: [id number] ABDOMEN: Obese and soft. EXTREMITIES: Have mild edema. Dorsalis pedis pulse cannot be palpated. SKIN: Cool and dry. NEUROLOGIC: Nonfocal. LYMPH: No adenopathy. MUSCULOSKELETAL: No joint effusion. RADIOLOGIC DATA: His ECG on admission 2 days ago showed a sinus rhythm with left anterior fascicular block and a right bundle-branch block, but no acute ST or T-wave changes were noted. His workup on admission, he had a portable chest x-ray that showed no acute abnormality, normal heart size, clear lung mann. He had a V/Q scan of the chest on admission in nuclear medicine, is a low probability for pulmonary embolus. LABORATORY DATA: Sodium 140, BUN 24, creatinine 1.0, and glucose 254. His troponin 0.06. BNP 2412. TSH in June of 0.6. White blood cell count 11.6 and hemoglobin 13.1. The patient had an echocardiogram performed yesterday that showed ejection fraction of 45% with hypokinesis noted of the inferior wall, aortic sclerosis. Of note, he actually had an echocardiogram in August that again suggested ejection fraction 45% with aortic sclerosis. IMPRESSION AND RECOMMENDATIONS: 1. Chronic obstructive pulmonary disease. 2. Previous tobacco abuse. 3. Diabetes. 4. History of kidney stone. 5. Obesity. 6. Chronic back pain. 7. Mild cardiomyopathy. Possible ischemic. I would not recommend cardiac catheterization. I would not recommend a beta elizabeth because of the COPD. I would start the patient on an ARB and Aldactone. I would give Lasix as needed for edema. <ELECTRONICALLY SIGNED> By: Arturo Nash MD, FACC 12/26/18 1009 0858 0934Daasael Nash MD, FACC /nt
[2018-12-26 12:47] VITALS: BP 138/73
[2018-12-26 16:01] VITALS: BP 149/75
[2018-12-27] VITALS: BP 166/81
[2018-12-27 04:00] VITALS: BP 160/82
[2018-12-27 07:05] VITALS: BP 184/96
[2018-12-27] MEDS ORDERED: SPIRONOLACTONE25 MG PO (10:59)
[2018-12-27] MEDS ORDERED: COZAAR 25 MG TA25 M2 PO (10:59)
[2018-12-27] MEDS ORDERED: LEVAQUIN 500 M500 M2 PO ×2 (10:59→11:50)
[2018-12-27] MEDS ORDERED: PREDNISONE 10 M10 MG PO (10:59)
[2018-12-27] MEDS ORDERED: HUMULIN 70100 UNIT/3 SUBQ (13:07)
[2018-12-27] MEDS ORDERED: HUMULIN 70100 UNIT/2 SUBQ (13:08)
[2018-12-27 13:09] VITALS: BP 184/96
[2018-12-27 13:19] VITALS: BP 184/96
--- NOTE | 2018-12-27 14:46 | EKG ---
[place] [address] ELECTROCARDIOGRAM REPORT Name: AJAY,LESLEY Migdalia Room: [place] [address] DIS IN M.R.#: [id number] Admission: 12/23/18 Attend Phys: Sherrell Balbuena MD Discharge: 12/27/18 Date of : 45 Report #: [id number] THIS REPORT FOR: //name// [facility] Test Date: 2018-12-26 Test Time: 12:13:24 Pat Name: LESLEY MOSS Department: Room: [place] [address] Gender: M Hospice Physician: MJ : 1945 Requested By: Sherrell Balbuena Order Number: [id number] [id number] MD: Jass Ortega Measurements Intervals [place] Rate: 88 P: 38 MI: 151 QRS: -35 QRSD: 161 T: -6 QT: 421 QTc: 510 Interpretive Statements Sinus rhythm Right bundle branch block Left ventricular hypertrophy Prolonged QT interval Baseline wander in lead(s) V2,V3,V4,V5,V6 Compared to ECG 12/23/2018 14:05:43 No significant changes Electronically Signed On 12-27-2018 14:46:38 CDT by Jass Ortega [email or web address] <ELECTRONICALLY SIGNED> By: Jass Ortega MD, FAC 12/27/18 1446 1213 1213 Jass Ortega MD, [facility] /EPI
== END 2018-12-27 13:51 | disposition home or self-care (01) | DRG 291 ==
LOC: M.ERS 13:41 → M.TBA-ER 15:38 → M.2W 15:38
PROVIDERS: Emergency Medicine; Internal Medicine Cardiovascular Disease; ADMIT Internal Medicine
DX: I11.0 Hypertensive heart disease with heart failure (principal); J96.01 Acute respiratory failure with hypoxia; J44.1 Chronic obstructive pulmonary disease with (acute) exacerbation; I50.23 Acute on chronic systolic (congestive) heart failure; I42.9 Cardiomyopathy, unspecified; E78.5 Hyperlipidemia, unspecified; E11.9 Type 2 diabetes mellitus without complications; M54.9 Dorsalgia, unspecified; G89.29 Other chronic pain; E66.9 Obesity, unspecified; Z68.34 Body mass index [BMI] 34.0-34.9, adult; Z87.442 Personal history of urinary calculi; Z87.891 Personal history of nicotine dependence; Z79.4 Long term (current) use of insulin; Z79.899 Other long term (current) drug therapy; Z83.3 Family history of diabetes mellitus; Z82.49 Family history of ischemic heart disease and other diseases of the circulatory system

== ENCOUNTER → 2019-01-14 | Outpatient (CLI) | payer OTHER | LOC: M.SLEEPLAB 19:52 | DX: G47.33 Obstructive sleep apnea (adult) (pediatric) (principal); G47.34 Idiopathic sleep related nonobstructive alveolar hypoventilation ==

== ENCOUNTER → 2019-02-04 | Outpatient (CLI) | payer OTHER ==
[~2019-02-04] VITALS: Ht 172.7 cm; Wt 100.7 kg
[~2019-02-04] MED LIST changes: +BACLOFEN 10MG T10 MG PO; +COZAAR 25 MG TA25 M2 PO; +HUMULIN 70100 UNIT/2 SUBQ; +IBUPROFEN 200200 M1 PO; +LASIX 20 MG TAB20 MG PO; +OXYCODON-ACETA1 EAC1 PO; +POTASSIUM20 PO; +SPIRONOLACTONE25 MG PO
[2019-02-04 13:50] VITALS: BP 132/72
[2019-02-04 15:18] LABS: HEMATOCRIT 39.6 % (42.0-52.0); HEMOGLOBIN 13.1 gm/dL (14.0-18.0); MCHC 33.2 g/dL (28.0-37.0); MCV 90.3 fL (80.0-100.0); MPV 10.1 fl. (7.2-11.1); RBC 4.38 mil/uL (4.50-6.00); RDW-CV 13.7 % (10.5-14.5); WBC 11.7 thou/uL (4.0-11.0)
[2019-02-04 15:25] LABS: APTT 27.5 Seconds (25.0-31.3)
[2019-02-04 15:32] LABS: ALBUMIN 3.4 g/dL (3.4-5.0); CALCIUM 9.2 mg/dL (8.5-10.1); CREATININE 1.1 mg/dL (0.6-1.3); POTASSIUM 4.2 mmol/L (3.5-5.1); TOTAL BILIRUBIN 0.3 mg/dL (<0.1-1.0); TOTAL PROTEIN 7.3 g/dL (6.4-8.2)
[2019-02-04 16:20] VITALS: BP 99/65
[2019-02-04 17:04] VITALS: BP 137/71
[2019-02-04 17:53] VITALS: BP 118/75
== END | disposition home or self-care (01) ==
LOC: M.INT 12:51
PROVIDERS: Radiology Diagnostic Radiology
DX: M80.08XA Age-related osteoporosis with current pathological fracture, vertebra(e), initial encounter for fracture (principal); M54.9 Dorsalgia, unspecified; E11.9 Type 2 diabetes mellitus without complications; I11.0 Hypertensive heart disease with heart failure; I50.20 Unspecified systolic (congestive) heart failure; J44.9 Chronic obstructive pulmonary disease, unspecified; E78.5 Hyperlipidemia, unspecified; Z87.01 Personal history of pneumonia (recurrent); Z98.890 Other specified postprocedural states; Z79.899 Other long term (current) drug therapy; Z87.891 Personal history of nicotine dependence; Z79.4 Long term (current) use of insulin

== ENCOUNTER 2019-02-08 18:04 | Emergency (ER) | payer OTHER ==
[~2019-02-08] VITALS: Ht 172.7 cm; Wt 100.7 kg
[2019-02-08 18:59] LABS: HEMATOCRIT 36.4 % (42.0-52.0); MCH 29.8 pg (26.0-34.0); MCHC 32.9 g/dL (28.0-37.0); MCV 90.7 fL (80.0-100.0); NUCLEATED RBCS 0 /100WBC; PLATELET COUNT* 166 thou/uL (150-400); RBC 4.01 mil/uL (4.50-6.00); RDW-CV 13.2 % (10.5-14.5); WBC 9.6 thou/uL (4.0-11.0)
[2019-02-08 19:06] LABS: ANION GAP 6 mmol/L (7-16); BUN 18 mg/dL (7-18); CALCIUM 8.6 mg/dL (8.5-10.1); CHLORIDE 99 mmol/L (98-107); CO2 29 mmol/L (21-32); CREATININE 1.1 mg/dL (0.6-1.3); GLUCOSE 386 mg/dL (70-99); POTASSIUM 4.5 mmol/L (3.5-5.1); SODIUM 134 mmol/L (136-145)
[2019-02-08 19:17] LABS: ALKALINE PHOSPHATASE 110 U/L (46-116); SGOT 8 U/L (15-37); SGPT 15 U/L (30-65); TOTAL BILIRUBIN 0.3 mg/dL (<0.1-1.0); TOTAL PROTEIN 6.6 g/dL (6.4-8.2); TROPONIN-I LEVEL <0.06 ng/mL (<0.06)
[2019-02-08 19:38] LABS: ABSOLUTE EOSINOPHILS 0.2 thou/uL (0.0-0.7); ABSOLUTE LYMPHOCYTES 1.4 thou/uL (0.8-5.3)
[2019-02-08 19:39] LABS: LARGE PLATELETS OCCASIONAL; PLATELET ESTIMATE ADEQUATE
[2019-02-08 19:59] VITALS: BP 141/57
--- NOTE | 2019-02-10 08:59 | EKG ---
[place] [address] ELECTROCARDIOGRAM REPORT Name: LESLEY MOSS Room: [facility].#: [id number] Admission: 02/08/19 Attend Phys: Discharge: 02/08/19 Date of : 45 Report #: [id number] THIS REPORT FOR: //name// [facility] ED Test Date: 2019-02-08 Test Time: 19:00:14 Pat Name: LESLEY MOSS Department: Room: Gender: M Senior Software Test Engineer: nc : 1945 Requested By: Michelle Drummond Order Number: [id number] MD: Jass Ortega Measurements Intervals [place] Rate: 85 P: 30 TN: 167 QRS: -22 QRSD: 153 T: 10 QT: 404 QTc: 481 Interpretive Statements Sinus rhythm Left ventricular hypertrophy Right bundle-branch block Borderline prolonged QT interval Compared to ECG 12/26/2018 12:13:24 No significant changes noted Electronically Signed On 02-10-2019 8:59:19 CDT by Jass Ortega [email or web address] <ELECTRONICALLY SIGNED> By: Jass Ortega MD, [facility] 02/10/19 0859 99 99 Jass Ortega MD, FAC /EPI
== END 2019-02-08 20:37 | disposition home or self-care (01) ==
LOC: M.ERS 18:04
PROVIDERS: Nurse Practitioner Family
DX: M54.6 Pain in thoracic spine (principal); E11.65 Type 2 diabetes mellitus with hyperglycemia; J44.9 Chronic obstructive pulmonary disease, unspecified; E78.5 Hyperlipidemia, unspecified; Z87.01 Personal history of pneumonia (recurrent); Z87.891 Personal history of nicotine dependence; Z79.4 Long term (current) use of insulin

== ENCOUNTER → 2019-03-10 | Outpatient (CLI) | payer OTHER | LOC: M.RAD 12:58 | DX: M85.88 Other specified disorders of bone density and structure, other site (principal) ==

== ENCOUNTER 2019-07-13 13:39 | Inpatient (IN) | payer OTHER ==
[~2019-07-13] VITALS: Ht 180.3 cm; Wt 113.4 kg
[2019-07-13 16:39] LABS: HEMATOCRIT 38.5 % (42.0-52.0); HEMOGLOBIN 12.8 gm/dL (14.0-18.0); MCH 30.2 pg (26.0-34.0); MCHC 33.1 g/dL (28.0-37.0); MCV 91.2 fL (80.0-100.0); MPV 9.5 fl. (7.2-11.1); RBC 4.23 mil/uL (4.50-6.00); RDW-CV 14.2 % (10.5-14.5); WBC 11.1 thou/uL (4.0-11.0)
[2019-07-13 16:51] LABS: CALCIUM 8.3 mg/dL (8.5-10.1); CREATININE 1.2 mg/dL (0.6-1.3); POTASSIUM 4.3 mmol/L (3.5-5.1)
--- NOTE | 2019-07-13 17:57 | NUR ---
VSS, ASSUMED CARE IN THE AM, ASSESSMENT PERFORMED AND CHARTED, FALL PRECAUTIONS IN PLACE AND CALL LIGHT IN REACH, PT IS A&O4 AND IS UP AD SHANTANU AND ON 2L NC AND DENIES ANY PAIN, PT IS TRACING SR ON THE MONITOR. WILL FOLLOW WITH PLAN OF CARE.
[2019-07-13 19:40] VITALS: BP 143/74
[2019-07-14] VITALS: BP 160/68
[2019-07-14 04:13] VITALS: BP 145/75
--- NOTE | 2019-07-14 05:53 | NUR ---
RECEIVED REPORT AND ASSUMED CARE AT 1900. VSS, CARDIAC MONITORING IN PLACE. PT DENIES COMPLAINTS OF PAIN. ASSESSMENT COMPLETED CHARTED. PT UP AD SHANTANU IN ROOM, ON 2L NC. BED LOCKED IN LOWEST POSITION, CALL LIGHT WITHIN REACH. DISCUSSED PLAN OF CARE WITH PT. VERBALIZED UNDERSTANDING. HOURLY ROUNDING COMPLETED AND ALL NEEDS MET
--- NOTE | 2019-07-14 07:10 | NUR ---
CHANGE IOF SHIFT, BEDSIDE REPORT GIVEN PATIENT SEEN AT BEDSIDE, IN BED WATCHING TV ASSUMED PATIENT CARE
[2019-07-14 08:00] VITALS: BP 135/65
[2019-07-14 12:00] VITALS: BP 144/74
--- NOTE | 2019-07-14 12:29 | NUR ---
Pt is A&O. Resides at home with his . Independent. Pt has a neb, no other DME. Pt states that he thinks that he needs home o2, but when tested previously, he never qualifies. No hx of HH or SNF. Goal is home at ca. Following.
[2019-07-14 16:00] VITALS: BP 103/58
--- NOTE | 2019-07-14 17:03 | EKG ---
[place] [address] ELECTROCARDIOGRAM REPORT Name: LESLEY MOSS Room: [address] ADM IN M.R.#: [id number] Admission: 07/13/19 Attend Phys: Erika Grove Discharge: Date of : 45 Report #: [id number] THIS REPORT FOR: //name// [facility] Test Date: 2019-07-13 Test Time: 16:08:49 Pat Name: LESLEY MOSS Department: Room: [address] Gender: M Vocational Nursing Instructor: : 1945 Requested By: Louis Rossi Order Number: [id number] Zeke MD: Dwayne Price Measurements Intervals [place] Rate: 86 P: 11 IA: 167 QRS: -41 QRSD: 150 T: 45 QT: 411 QTc: 492 Interpretive Statements Sinus rhythm Atrial premature complexes RBBB and LAFB Left ventricular hypertrophy Compared to ECG 02/08/2019 19:00:14 Atrial premature complex(es) now present Left anterior fascicular block now present Electronically Signed On 07-14-2019 17:02:45 SWORD SWALLOWER by Dwayne Price [email or web address] <ELECTRONICALLY SIGNED> By: Dwayne Price MD, FAC 07/14/19 1702 1608 1608 Dwayne Price MD, [facility] /EPI
[2019-07-14 20:03] VITALS: BP 119/60
[2019-07-15] VITALS (7 sets, daily range): BP systolic 115–137; BP diastolic 49–72
--- NOTE | 2019-07-15 05:24 | NUR ---
PT IS ABLE TO COMMUNICATE HIS NEEDS TO STAFF EFFECTIVELY. HE HAS DENIED THE NEED FOR PAIN MEDICATION UP TO THIS TIME.
--- NOTE | 2019-07-15 10:00 | NUR ---
INITAL ASSESSMENT COMPLETED CHARTED. VSS. TRACING SR WITH BBB ON MONITOR. PT DENIES CRISTOBAL, SOA, N/V/D. REFEDR TO COMPUTER CHARTING FOR FURTHER DETAILS. HOURLY ROUNDING IN PLACE FOR PT SAFETY. CLWR.
[2019-07-16 04:16] VITALS: BP 126/69
--- NOTE | 2019-07-16 05:25 | NUR ---
PT IS ABLE TO COMMUNICATE HIS NEEDS TO STAFF EFFECIVELY. HE HAS DENIED THE NEED FOR PAIN MEDICATION UP TO THIS TIME. POSSIBLE DISCHARGE TOMORROW.
[2019-07-16 05:27] LABS: HEMOGLOBIN 12.5 gm/dL (14.0-18.0); MCH 29.9 pg (26.0-34.0); MCHC 32.9 g/dL (28.0-37.0); MCV 90.9 fL (80.0-100.0); MPV 9.7 fl. (7.2-11.1); RBC 4.18 mil/uL (4.50-6.00); RDW-CV 14.2 % (10.5-14.5); WBC 20.8 thou/uL (4.0-11.0)
[2019-07-16 05:35] LABS: CALCIUM 8.5 mg/dL (8.5-10.1); CREATININE 1.3 mg/dL (0.6-1.3); MAGNESIUM 1.8 mg/dL (1.8-2.4); POTASSIUM 4.9 mmol/L (3.5-5.1)
[2019-07-16 07:00] VITALS: BP 143/77
--- NOTE | 2019-07-16 09:15 | NUR ---
INITIAL ASSESSMENT COMPLETED CHARTED. VSS. TRACING SR WITH PVC'S ON MONITOR. PT DENIES PAIN. PT STATES HE FEEL SOA WITH EXERTION. NO OTHER COMPLAINTS AT THIS TIME. HOURLY ROUNDING IN PLACE FOR PT SAFETY. CLWR.
[2019-07-16 11:35] VITALS: BP 121/57
[2019-07-16 16:00] VITALS: BP 125/51
[2019-07-16 20:46] VITALS: BP 132/68
[2019-07-17] VITALS: BP 133/54
[2019-07-17 04:00] VITALS: BP 122/60
--- NOTE | 2019-07-17 06:55 | NUR ---
PT IS ABLE TO COMMUNICATE HIS NEEDS TO STAFF EFFECTIVELY. HE HAS DENIED THE NEED FOR PAIN MEDICAITON UP TO THIS TIME.
[2019-07-17 07:20] VITALS: BP 157/80
[2019-07-17 16:59] VITALS: BP 128/55
--- NOTE | 2019-07-17 17:56 | NUR ---
VSS THIS SHIFT TOLERATING DIET, 2L O2 PER NC, UP AD SHANTANU WITH STEADY GAIT THIS SHIFT. PT DOWNGRADED TO MED/SURG STATUS THIS MORNING. SKIN IS WDI AT THIS TIME. NO CONCERNS NOTED. HOURLY ROUNDING MAINTAINED THIS SHIFT. WILL CONTINUE TO MONITOR AND ASSESS.
[2019-07-17 19:30] VITALS: BP 130/70
[2019-07-18 00:13] VITALS: BP 119/46
--- NOTE | 2019-07-18 05:05 | NUR ---
ASSUMED CARE OF PATIENT AT APPROX 1930. ALERT AND ORIENTED X4. ASSESSMENT COMPLETED AND CHARTED. VSS ON 2 LITERS 02. NO COMPLAINTS OF PAIN OR SOA. PATIENT UP AD SHANTANU IN THE ROOM. SLEPT THROUGHOUT THE NIGHT AND UP SITTING AT THE EDGE OF THE BED AT THIS TIME. CALL LIGHT IS WITHIN REACH. HOURLY ROUNDS COMPLETED. WILL CONTINUE WITH PLAN OF CARE.
[2019-07-18 06:02] LABS: HEMATOCRIT 39.2 % (42.0-52.0); HEMOGLOBIN 12.7 gm/dL (14.0-18.0); MCH 29.8 pg (26.0-34.0); MCHC 32.4 g/dL (28.0-37.0); MCV 92.1 fL (80.0-100.0); MPV 10.2 fl. (7.2-11.1); RBC 4.26 mil/uL (4.50-6.00); RDW-CV 14.3 % (10.5-14.5); WBC 13.4 thou/uL (4.0-11.0)
[2019-07-18 06:21] LABS: ALBUMIN 3.2 g/dL (3.4-5.0); CALCIUM 8.1 mg/dL (8.5-10.1); CREATININE 1.3 mg/dL (0.6-1.3); MAGNESIUM 1.8 mg/dL (1.8-2.4); POTASSIUM 3.9 mmol/L (3.5-5.1); TOTAL BILIRUBIN 0.3 mg/dL (<0.1-1.0); TOTAL PROTEIN 6.3 g/dL (6.4-8.2)
[2019-07-18 08:00] VITALS: BP 137/73
--- NOTE | 2019-07-18 09:40 | NUR ---
Anticipate dc to home today, spoke with Pt regarding HH, Pt stated "I don't want HH because I'm not going to stay at home and wait for them to come." Updated nurse
[2019-07-18 12:05] VITALS: BP 134/69
[2019-07-18 16:25] VITALS: BP 139/70
--- NOTE | 2019-07-18 18:20 | NUR ---
PT IS RESTING AT THIS TIME WITH CALL LIGHT IN REACH. PT UP AD SHANTANU AND HAS HAD NO C/O SOA OR PAIN ON ROUNDING. VSS ON 2L NC. PT PROGRESSING TOWARDS GOALS. WCTM
[2019-07-18 19:40] VITALS: BP 139/67
[2019-07-18 23:56] VITALS: BP 122/55
--- NOTE | 2019-07-19 05:24 | NUR ---
PT CARE ASSUMED AT 1930. SAT MAINTAINED IN O2. ALERT AND ORIENTED X4. DENIES PAIN AND SOB. CALL LIGHT WITHIN REACH AND BED IN LOW POSITION. HOURLY ROUNDING DONE FOR PT SAFETY.
[2019-07-19 08:00] VITALS: BP 131/77
--- NOTE | 2019-07-19 10:36 | NUR ---
DC ORDERS RECEIVED. PT WILL NEED HOME O2. STATES HE DOES NOT WANT TO USE [facility]. WILL FAX ORDERS TO [facility]. REFUSES HH
--- NOTE | 2019-07-19 11:20 | NUR ---
PAPERWORK FAXED TO [facility]. [facility] REQUESTING A REPEAT OF RT EXERCISE STUDY LAST STUDY WAS INCOMPLETE THEN 02 CAN BE DELIVERED. RT NOTIFIED
[2019-07-19] MEDS ORDERED: LEVAQUIN 500 M500 M3 PO (12:06)
[2019-07-19] MEDS ORDERED: PREDNISONE 10 M10 MG PO (12:06)
[2019-07-19 13:23] VITALS: BP 131/77
[2019-07-19 13:42] VITALS: BP 131/77
--- NOTE | 2019-07-19 15:32 | NUR ---
PT DISCHARGED TO HOME IN STABLE CONDITION. DISCHARGE INSTRUCTIONS REVIEWED WITH PT AND PT REPORTS UNDERSTANDING WITHOUT FURTHER QUESTIONS. PT TAKEN BY WHEELCHAIR TO FAMILY VEHICLE ACCOMPANIED BY STAFF.
[2019-07-20 16:09] LABS: ADENOVIRUS Positive (Negative); INFLUENZA A Negative (Negative); INFLUENZA B Negative (Negative); METAPNEUMOVIRUS Negative (Negative); PARAINFLUENZA 1 Negative (Negative); PARAINFLUENZA 2 Negative (Negative); PARAINFLUENZA 3 Negative (Negative); RHINOVIRUS Positive (Negative); RSV A Negative (Negative); RSV B Negative (Negative)
== END 2019-07-19 15:15 | disposition home or self-care (01) | DRG 189 ==
LOC: M.2W 13:39
PROVIDERS: Internal Medicine; ADMIT Internal Medicine
DX: J96.01 Acute respiratory failure with hypoxia (principal); J44.1 Chronic obstructive pulmonary disease with (acute) exacerbation; I13.0 Hypertensive heart and chronic kidney disease with heart failure and stage 1 through stage 4 chronic kidney disease, or unspecified chronic kidney disease; I50.32 Chronic diastolic (congestive) heart failure; E11.22 Type 2 diabetes mellitus with diabetic chronic kidney disease; G47.33 Obstructive sleep apnea (adult) (pediatric); N40.0 Benign prostatic hyperplasia without lower urinary tract symptoms; G89.29 Other chronic pain; M54.9 Dorsalgia, unspecified; N18.3 Chronic kidney disease, stage 3 (moderate); Z96.1 Presence of intraocular lens; Z87.01 Personal history of pneumonia (recurrent); Z82.49 Family history of ischemic heart disease and other diseases of the circulatory system; Z83.3 Family history of diabetes mellitus; Z87.891 Personal history of nicotine dependence; Z79.4 Long term (current) use of insulin; Z79.899 Other long term (current) drug therapy

== ENCOUNTER 2019-12-22 12:14 | Inpatient (IN) | payer OTHER ==
[~2019-12-22] VITALS: Ht 170.2 cm; Wt 110.3 kg
[~2019-12-22 12:14] MED LIST changes: +LEVAQUIN 500 M500 M3 PO
[2019-12-22 12:18] VITALS: BP 161/87
[2019-12-22] MEDS ORDERED: PULMICORT0.5 MG/22 INH (12:33)
[2019-12-22 13:24] LABS: ABSOLUTE EOSINOPHILS 0.4 thou/uL (0.0-0.7); ABSOLUTE LYMPHOCYTES 1.4 thou/uL (0.8-5.3); ABSOLUTE MONOCYTES 0.8 thou/uL (0.0-1.2); BASOPHILS 0.3 %; EOSINOPHILS 4.1 %; HEMATOCRIT 35.3 % (42.0-52.0); HEMOGLOBIN 11.8 gm/dL (14.0-18.0); LYMPHOCYTES 14.7 %; MCHC 33.4 g/dL (28.0-37.0); MCV 92.7 fL (80.0-100.0); MONOCYTES 7.9 %; MPV 10.5 fl. (7.2-11.1); NUCLEATED RBCS 0 /100WBC; PLATELET COUNT* 138 thou/uL (150-400); RBC 3.81 mil/uL (4.50-6.00); RDW-CV 13.3 % (10.5-14.5); WBC 9.5 thou/uL (4.0-11.0)
[2019-12-22 13:33] LABS: APTT 26.2 Seconds (25.0-31.3); CALCIUM 9.1 mg/dL (8.5-10.1); CREATININE 1.2 mg/dL (0.6-1.3); POTASSIUM 4.1 mmol/L (3.5-5.1); PROTIME 10.7 Seconds (9.20-11.50)
[2019-12-22 13:44] LABS: ALBUMIN 3.5 g/dL (3.4-5.0); TOTAL BILIRUBIN 0.3 mg/dL (<0.1-1.0)
[2019-12-22 14:25] VITALS: BP 162/87
--- NOTE | 2019-12-22 18:20 | EKG ---
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 : 1945 Requested By: Michelle Drummond Order Number: [id number] MD: Jass Ortega Measurements Intervals [place] Rate: 79 P: 25 [place]: 172 QRS: -44 QRSD: 159 T: 2 QT: 435 QTc: 499 Interpretive Statements Sinus rhythm Multiple ventricular premature complexes RBBB and LAFB Left ventricular hypertrophy Compared to ECG 07/13/2019 16:08:49 Ventricular premature complex(es) now present Atrial premature complex(es) no longer present Electronically Signed On 12-22-2019 18:19:24 CDT by Jass Ortega [email or web address] <ELECTRONICALLY SIGNED> By: Jass Ortega MD, FACC 12/22/19 1819 1241 1241 Jass Ortega MD, FAC /EPI
[2019-12-22 18:54] VITALS: BP 158/80
[2019-12-22 21:09] VITALS: BP 134/69
[2019-12-23] VITALS (7 sets, daily range): BP systolic 107–158; BP diastolic 52–96
[2019-12-23 04:35] LABS: HEMATOCRIT 37.1 % (42.0-52.0); HEMOGLOBIN 12.1 gm/dL (14.0-18.0); MCH 30.6 pg (26.0-34.0); MCHC 32.7 g/dL (28.0-37.0); MCV 93.6 fL (80.0-100.0); MPV 10.7 fl. (7.2-11.1); RBC 3.97 mil/uL (4.50-6.00); RDW-CV 13.1 % (10.5-14.5); WBC 11.6 thou/uL (4.0-11.0)
[2019-12-23 04:48] LABS: CALCIUM 9.2 mg/dL (8.5-10.1); CREATININE 1.4 mg/dL (0.6-1.3); MAGNESIUM 1.4 mg/dL (1.8-2.4); POTASSIUM 4.2 mmol/L (3.5-5.1)
--- NOTE | 2019-12-23 05:07 | NUR ---
PT ADMITTED TO ROOM 223 JUST BEFORE EVENING SHIFT CHANGE ON 12/21; VSS, A+OX4, 3LO2 NC, UP AD SHANTANU AND STEADY IN ROOM. HE IS ABLE TO COMMUNICATE HIS NEEDS TO STAFF EFFECTIVELY. HE HAS DENIED THE NEED FOR PAIN MEDICATION UP TO THIS TIME. HE HAS BEEN NPO SINCE MIDNIGHT FOR A CARDIOLOGY CONSULT LATER TODAY. PT IS NOT AWARE OF WHAT HOME MEDS HE IS TAKING; CONTACT IF FURTHER INFO IS REQUIRED.
--- NOTE | 2019-12-23 11:34 | NUR ---
ASSUMED CARE OF PT AT 0730. PT RESTING IN BED. A&0X4, DENIES ANY PAIN OR SHORTNESS OF BREATH AT THIS TIME. PT NPO FOR CARDIOLOGY THIS AM- PER NEEMA BERMEO OKAY FOR PT TO EAT. PT TRACING SR WITH BBB AND OCCASIONAL PVC'S ON THE DADO OPERATOR. PT ON 3L NC SAT 93%. PT UP AD SHANTANU IN ROOM. PT HAS GOOD URINE OUTPUT POST IV LASIX. REFER TO I/0. PT ON 2,000ML FLUID RESTRICTION. PT GOAL FOR TODAY IS CARDIOLOGY CONSULT IN PLACE, COMPLETE ECHO, OBTAIN SPUTUM SAMPLE AND REPLACE MAGNESIUM PER ELECTROLYTE PROTOCOL. AM ASSESSMENT CHARTED. MEDICATIONS PER AUG. PT REPOSITIONS SELF. HOURLY ROUNDING OBSERVED. BED IN LOW POSITION. CALL LIGHT WITHIN REACH. WILL CONTINUE PLAN OF CARE.
--- NOTE | 2019-12-23 15:28 | 2DMMODE ---
[place] [address] 2 D/M-MODE ECHOCARDIOGRAM Name: LESLEY MOSS Room: [address] ADM IN M.R.#: [id number] Admission: 12/22/19 Attend Phys: Jovanny Zimmer, Discharge: Date of : 45 Date of Service: 12/23/19 1527 Report #: [id number] THIS REPORT FOR: cc: Lavonne Szymanski Maggie M. DO Holkins, John M. MD [facility] ~ APPROVED REPORT Study performed: 12/23/2019 09:57:24 EXAM: Comprehensive 2D, Doppler, and color-flow Echocardiogram Patient Location: In-Patient BSA: 2.06 HR: 75 bpm BP: 114/67 mmHg Other Information Study Quality: Fair Indications Dyspnea 2D Dimensions IVSd: 16.46 (7-11mm) LVOT Diam: 23.35 (18-24mm) LVDd: 53.03 mm PWd: 17.01 (7-11mm) Ascending Ao: 34.45 (22-36mm) LVDs: 48.20 (25-40mm) Aortic Root: 35.70 mm Volumes Left Atrial Volume (Systole) LA ESV Index: 24.80 mL/m2 Aortic Valve AoV Peak Javier.: 0.97 m/s AO Peak Gr.: 3.76 mmHg LVOT Max P.63 mmHg AO Mean Gr.: 2.31 mmHg LVOT Mean P.35 mmHg LVOT Max V: 0.81 m/s AO V2 VTI: 17.57 cm LVOT Mean V: 0.54 m/s ZULEYMA (VTI): 4.07 cm2 LVOT V1 VTI: 16.71 cm Mitral Valve E/A Ratio: 1.00 [place] [address] 2 D/M-MODE ECHOCARDIOGRAM Name: LESLEY MOSS Room: [address] IN .R.#: [id number] Admission: 12/22/19 Attend Phys: Jovanny Zimmer, Discharge: Date of : 45 Date of Service: 12/23/19 1527 Report #: [id number] MV Decel. Time: 184.40 ms MV E Max Javier.: 0.87 m/s MV PHT: 53.48 ms MVA (PHT): 4.11 cm2 TDI E/Lateral E': 8.70 E/Medial E': 12.43 Medial E' Javier.: 0.07 m/s Lateral E' Javier.: 0.10 m/s Pulmonary Valve PV Peak Javier.: 0.92 m/s PV Peak Gr.: 3.39 mmHg Left Ventricle Left ventricle is borderline dilated. There is normal LV segmental wall motion. There is normal left ventricular wall thickness. Left ventricular systolic function is moderately decreased. LVEF is 35-40%. Grade I - abnormal relaxation pattern. Right Ventricle The right ventricle is normal size. The right ventricular systolic function is normal. Atria The left atrium size is normal. The right atrium size is normal. Aortic Valve The aortic valve is normal in structure. No aortic regurgitation is present. There is no aortic valvular stenosis. Mitral Valve The mitral valve is normal in structure. Trace mitral regurgitation. No evidence of mitral valve stenosis. Tricuspid Valve The tricuspid valve is normal in structure. There is no tricuspid valve regurgitation noted. Pulmonic Valve The pulmonary valve is normal in structure. There is no pulmonic valvular regurgitation. Great Vessels The aortic root is normal in size. IVC is normal in size and collapses >50% [place] [address] 2 D/M-MODE ECHOCARDIOGRAM Name: AJAYLESLEY GOMEZ ERNA Room: [address] IN [facility]#: [id number] Admission: 12/22/19 Attend Phys: Jovanny Zimmer, Discharge: Date of : 45 Date of Service: 12/23/19 1527 Report #: [id number] Pericardium There is no pericardial effusion. <Conclusion> Left ventricle is borderline dilated. There is normal left ventricular wall thickness. Left ventricular systolic function is moderately decreased. LVEF is 35-40%. Grade I - abnormal relaxation pattern. The right ventricle is normal size. The left atrium size is normal. The aortic valve is normal in structure. The mitral valve is normal in structure. Trace mitral regurgitation. The tricuspid valve is normal in structure. IVC is normal in size and collapses >50% with inspiration. There is no pericardial effusion. There is normal LV segmental wall motion. <ELECTRONICALLY SIGNED> By: Dwayne Price MD, [facility] 12/23/19 1527 1527 1527 Dwayne Price MD, FACC /INF
--- NOTE | 2019-12-23 16:41 | NUR ---
NO ACUTE CHANGES THROUGHOUT SHIFT. REFER TO CHARTING. PT PROGRESSING TOWARDS GOALS. GOOD URINE OUTPUT-REFER TO I/O. CARDIOLOGY SEEN PT TODAY-PLAN IS TRANSITION TO ORAL [facility] TOMORROW 12/23. PT HAD ECHO TODAY-REFER TO RESULTS. MAGNESIUM BEING REPLACED PER ELECTROLYTE PROTOCOL. UNABLE TO OBTAIN SPUTUM SAMPLE PT IS NOT COUGHING ANYTHING UP. CONTINUES TO BE ON 3L NC SAT 93-95%. PT UP AD SHANTANU IN ROOM. MEDICATIONS PER AUG. PT REPOSITIONS SELF. HOURLY ROUNDING OBSERVED. BED IN LOW POSITION. CALL LIGHT WITHIN REACH. WILL CONTINUE PLAN OF CARE.
[2019-12-24] VITALS: BP 116/54
[2019-12-24 04:00] VITALS: BP 130/71
[2019-12-24 04:53] LABS: HEMATOCRIT 34.7 % (42.0-52.0); HEMOGLOBIN 11.7 gm/dL (14.0-18.0); MCH 30.9 pg (26.0-34.0); MCHC 33.7 g/dL (28.0-37.0); MCV 91.8 fL (80.0-100.0); MPV 11.1 fl. (7.2-11.1); RBC 3.78 mil/uL (4.50-6.00); RDW-CV 13.3 % (10.5-14.5); WBC 20.2 thou/uL (4.0-11.0)
[2019-12-24 05:06] LABS: CALCIUM 8.8 mg/dL (8.5-10.1); CREATININE 1.5 mg/dL (0.6-1.3); MAGNESIUM 1.5 mg/dL (1.8-2.4); POTASSIUM 3.7 mmol/L (3.5-5.1)
--- NOTE | 2019-12-24 05:43 | NUR ---
PT IS ABLE TO COMMUNICATE HIS NEEDS TO STAFF EFFECTIVELY. HE HAS DENIED THE NEED FOR PAIN MEDICATION UP TO THIS TIME. PT HAD SHORT RUN OF SVT DURING THIS SHIFT; STRIP IS ON HIS CHART, NOT PAGED PT SLEPT THROUGH THE EVENT AND WAS ASYMPTOMATIC UPON WAKEING. POSSIBLE DISCHARGE TODAY.
[2019-12-24 08:00] VITALS: BP 147/63
[2019-12-24] MEDS ORDERED: LASIX 40 MG TAB40 MG PO (10:41)
[2019-12-24] MEDS ORDERED: AZITHROMYCIN500 MG PO (10:41)
[2019-12-24] MEDS ORDERED: CEFDINIR300 MG PO (10:41)
--- NOTE | 2019-12-24 11:46 | NUR ---
ASSUMED CARE OF PT AT 0730. PT RESTING AT EDGE OF BED WAITING FOR BREAKFAST. A&0X4, DENIES ANY PAIN OR SHORTNESS OF BREATH AT THIS TIME. 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 ON 3L NC SAT 94%. PT UP AD SHANTANU IN ROOM. PT GOAL FOR TODAY IS REPLACE MAGNESIUM PER ELECTROLYTE PROTOCOL AND DISCHARGE PLANNING TO HOME. AM ASSESSMENT CHARTED. MEDICATIONS PER MAR. PT REPOSITIONS SELF. HOURLY ROUNDING OBSERVED. BED IN LOW POSITION. CALL LIGHT WITHIN REACH. WILL CONTINUE PLAN OF CARE.
[2019-12-24 12:23] VITALS: BP 140/79
--- NOTE | 2019-12-24 17:52 | NUR ---
DISCHARGE ORDERS RECEIVED. DISCHARGE INSTRUCTIONS, CARE NOTES, AND FOLLOW UP APPTS GIVEN TO PT. PT COMMUNICATES UNDERSTANDING OF DISCHARGE TEACHING. IV AND GENERAL TELLER REMOVED. PT DISCHARGED WITH ALL BELONGINGS AND PAPERWORK VIA WHEELCHAIR WITH NURSING STAFF TO FAMILY OWN PERSONAL VEHICLE. PT TO HAVE CARDIAC/PULMONARY REHAB AT DISCHARGE. ORDERS FAXED TO CARDIAC REHAB TO SET UP AND FAXED TO CARDIOLOGY OFFICE WELL.
== END 2019-12-24 17:55 | disposition home or self-care (01) | DRG 177 ==
LOC: M.ERS 12:14 → M.2W 14:28 → M.TBA-ER 14:28 → M.2W 18:45
PROVIDERS: Nurse Practitioner Family; ADMIT Internal Medicine; ATTEND Internal Medicine
DX: J15.6 Pneumonia due to other Gram-negative bacteria (principal); J96.01 Acute respiratory failure with hypoxia; I50.43 Acute on chronic combined systolic (congestive) and diastolic (congestive) heart failure; J44.1 Chronic obstructive pulmonary disease with (acute) exacerbation; J44.0 Chronic obstructive pulmonary disease with (acute) lower respiratory infection; I43 Cardiomyopathy in diseases classified elsewhere; E66.9 Obesity, unspecified; E03.9 Hypothyroidism, unspecified; I11.0 Hypertensive heart disease with heart failure; E11.9 Type 2 diabetes mellitus without complications; E78.5 Hyperlipidemia, unspecified; Z96.1 Presence of intraocular lens; Z20.828 Contact with and (suspected) exposure to other viral communicable diseases; Z68.38 Body mass index [BMI] 38.0-38.9, adult; Z79.899 Other long term (current) drug therapy; Z87.891 Personal history of nicotine dependence; Z99.81 Dependence on supplemental oxygen; Z79.4 Long term (current) use of insulin

== ENCOUNTER → 2019-12-29 | Outpatient (CLI) | payer OTHER ==
[~2019-12-29] MED LIST changes: +AZITHROMYCIN500 MG PO; +LASIX 40 MG TAB40 MG PO; +PULMICORT0.5 MG/22 INH
[2019-12-29 13:58] LABS: CALCIUM 8.6 mg/dL (8.5-10.1); CREATININE 1.5 mg/dL (0.6-1.3); POTASSIUM 4.2 mmol/L (3.5-5.1)
== END ==
LOC: M.LAB 13:31
PROVIDERS: ATTEND Registered Nurse
DX: I50.22 Chronic systolic (congestive) heart failure (principal)

== ENCOUNTER → 2020-01-03 | Outpatient (CLI) | payer OTHER | LOC: M.ULTRA 16:16 | PROVIDERS: ATTEND Internal Medicine Critical Care Medicine | DX: J98.4 Other disorders of lung (principal); J84.10 Pulmonary fibrosis, unspecified; J44.9 Chronic obstructive pulmonary disease, unspecified; I50.22 Chronic systolic (congestive) heart failure; R06.02 Shortness of breath; M47.894 Other spondylosis, thoracic region; M85.88 Other specified disorders of bone density and structure, other site ==

== ENCOUNTER → 2020-01-27 | Outpatient (CLI) | payer OTHER ==
[2020-01-27 12:33] LABS: CALCIUM 8.9 mg/dL (8.5-10.1); CREATININE 1.8 mg/dL (0.6-1.3); POTASSIUM 4.9 mmol/L (3.5-5.1)
== END ==
LOC: M.LAB 12:03
PROVIDERS: ATTEND Registered Nurse
DX: I42.9 Cardiomyopathy, unspecified (principal)

== ENCOUNTER → 2020-03-21 | Outpatient (CLI) | payer OTHER ==
[2020-03-21 11:49] LABS: CALCIUM 9.3 mg/dL (8.5-10.1); CREATININE 1.8 mg/dL (0.6-1.3); POTASSIUM 5.1 mmol/L (3.5-5.1)
== END ==
LOC: M.LAB 11:26
PROVIDERS: ATTEND Registered Nurse
DX: I42.0 Dilated cardiomyopathy (principal)

== ENCOUNTER → 2020-04-10 | Outpatient (CLI) | payer OTHER ==
--- NOTE | 2020-04-16 01:51 | SLEEP ---
[address] [address] SLEEP STUDY REPORT Name: AJAY,LESLEY Migdaila Room: [facility]#: [id number] Admission: 04/10/20 Attend Phys: Haider Guerrero MD Discharge: Date of : 45 Report #: [id number] THIS REPORT FOR: //name// CC: Haider Szymanski This study has been reviewed in its entirety by a board certified sleep specialist DATE OF SERVICE: 04/10/2020 INDICATION FOR SLEEP STUDY: Obstructive sleep apnea. The patient has failed a CPAP. Sleep study is performed for BiPAP titration. INTERPRETATION: Total duration of the study is 385 minutes. During this time period, the patient was asleep for 207 minutes with an overall sleep efficiency of 54%. Sleep onset initially occurred around 12 minutes after lying down in bed and REM onset was delayed to 249 minutes after sleep onset. N1 sleep duration was elevated to 19%, N2 duration was 52%, N3 duration was 16% and REM duration was 14%. Mean heart rate during the diagnostic portion of the sleep study was 78 and during the titration portion of the sleep study was 66. This is a split night sleep study. The patient was not on positive airway pressure therapy for 143 minutes initially during this time. The patient was asleep for 65 minutes. This entire duration was in non-REM sleep. The patient at this point had multiple sleep related respiratory events. These included, 46 hypopneas in addition to 1 obstructive apnea. The patient was observed asleep in the supine position for 58 minutes. The patient's overall apnea-hypopnea index was 24. There are more events recorded when the patient is lying on the right side; however, this may in fact not be related to the change in position. Mean heart rate during the diagnostic portion of the sleep study is 78. Periodic limb movement index is elevated to 110. Periodic limb movement index with arousals was 15. Overall, arousal index was 38 during the diagnostic portion of the sleep study. There are multiple desaturations recorded. The patient overall did spend 11 minutes below an O2 saturation of 90% during the diagnostic portion of the sleep study. The patient was subsequently placed on a BiPAP and was observed on a BiPAP at 242 minutes, this included 142 minutes of sleep time, which in turn included 29 minutes of REM sleep. The patient's mean heart rate was now 66. Periodic limb movement index remained elevated to 118, but the periodic limb movement index with arousals was 4.7. Arousal index was elevated to 20. Review of the BiPAP titration indicates the patient was titrated beginning with a BiPAP pressure of 10/5 and gradually increasing it to 14/7. With administration of a BiPAP of 14/7, there [place] [address] SLEEP STUDY REPORT Name: LESLEY MOSS [id number] Admission: 04/10/20 Attend Phys: Haider Guerrero MD Discharge: Date of : 45 Report #: [id number] patient's sleep-disordered respirations. The total duration of time, the patient was observed on the final BiPAP pressure, however, is limited. The patient also did not have REM sleep at the final BiPAP pressure, lowered by blood pressure when the patient did have REM sleep, there were desaturations as well as a sleep related respiratory events. Although O2 saturation is maintained at or above 89% on a BiPAP of 14/7, I would expect the patient to desaturate to lower levels and sustained sleep on this final BiPAP pressure. IMPRESSION: 1. Obstructive sleep apnea with an apnea-hypopnea index of 24 and nocturnal hypoxemia as described above. 2. The patient has failed CPAP therapy, but there is a favorable response to BiPAP therapy. The patient's sleep disordered respirations do improved significantly on BiPAP, some desaturations however continued to occur as described above, but there is marked improvement with a BiPAP of 14/7. RECOMMENDATIONS: I recommend placing the patient on a BiPAP of 14/7 with a spontaneous rate and heated humidity with mask per patient preference while asleep. The patient currently is on 2.5 liters oxygen continuous at home. I recommend continuing with 2.5 liters oxygen in line with BiPAP. If the patient does well with the above therapy, then I will plan to obtain a nocturnal pulse oximetry with the BiPAP and oxygen 2.[address] to assess further. Depending on the clinical course, I may consider repeating another sleep study with a BiPAP titration later to further define the patient's optimal BiPAP pressures as well. During the sleep study, an F and P Simplus full face mask, size large with a C-Flex of 3 was used. Recommend avoiding driving or other activities requiring vigilance if drowsy. Recommend weight loss. This entire sleep study was reviewed by board certified sleep physician. <ELECTRONICALLY SIGNED> By: Haider Guerrero MD 04/16/20 0151 0039 [id number] Guerrero MD /nt
== END ==
LOC: M.SLEEPLAB 03-21 20:00
PROVIDERS: ATTEND Internal Medicine Critical Care Medicine
DX: G47.33 Obstructive sleep apnea (adult) (pediatric) (principal); G47.34 Idiopathic sleep related nonobstructive alveolar hypoventilation

== ENCOUNTER 2020-05-27 20:17 | Inpatient (IN) | payer OTHER ==
[~2020-05-27] VITALS: Ht 172.7 cm; Wt 104.3 kg
[2020-05-27 20:27] VITALS: BP 102/41
[2020-05-27 20:48] LABS: HEMATOCRIT 34.4 % (42.0-52.0); HEMOGLOBIN 11.3 gm/dL (14.0-18.0); MCH 30.4 pg (26.0-34.0); MCV 92.3 fL (80.0-100.0); MPV 9.2 fl. (7.2-11.1); NUCLEATED RBCS 0 /100WBC; PLATELET COUNT* 206 thou/uL (150-400); RBC 3.73 mil/uL (4.50-6.00); RDW-CV 12.9 % (10.5-14.5); WBC 27.3 thou/uL (4.0-11.0)
[2020-05-27 20:59] LABS: PROTIME 10.2 Seconds (9.20-11.50)
[2020-05-27 21:10] LABS: INFLUENZA A ANTIGEN Negative (Negative); INFLUENZA B ANTIGEN Negative (Negative)
[2020-05-27 21:13] LABS: ABSOLUTE EOSINOPHILS 0.5 thou/uL (0.0-0.7); ABSOLUTE LYMPHOCYTES 3.8 thou/uL (0.8-5.3); ABSOLUTE MONOCYTES 1.1 thou/uL (0.0-1.2); ABSOLUTE NEUTROPHILS 21.8 thou/uL (1.6-8.1); ATYPICAL LYMPHS 4 %; PLATELET ESTIMATE ADEQUATE
[2020-05-27 21:28] LABS: CALCIUM 9.2 mg/dL (8.5-10.1)
[2020-05-27 21:38] LABS: ALBUMIN 3.8 g/dL (3.4-5.0); MAGNESIUM 1.6 mg/dL (1.8-2.4); TOTAL BILIRUBIN 0.2 mg/dL (<0.1-1.0); TOTAL PROTEIN 8.2 g/dL (6.4-8.2)
[2020-05-27] MEDS ORDERED: CALCIUM500 MG PO (22:31)
[2020-05-27] MEDS ORDERED: SPIRONOLACTONE25 MG PO (22:31)
[2020-05-27] MEDS ORDERED: CARVEDILOL3.125 MG PO (22:32)
[2020-05-27] MEDS ORDERED: SINGULAIR 10 MG10 M1 PO (22:33)
[2020-05-27] MEDS ORDERED: VITAMIN D325 MC1 PO (22:33)
[2020-05-27] MEDS ORDERED: PRESERVISION A1 EAC2 PO (22:33)
[2020-05-27] MEDS ORDERED: BASAGLAR K100 UNIT/1 SUBQ (22:34)
[2020-05-28] VITALS (7 sets, daily range): BP systolic 107–147; BP diastolic 43–66
--- NOTE | 2020-05-28 06:51 | NUR ---
PT RECIEVED FROM ED IN ROOM 212. ALERT AND ORIENTED X4. DENIES PAIN AND SOB. CALL LIGHT WITHIN REACH AND BED IN LOW POSITION. HOURLY ROUNDING DONE FOR PT SAFETY.
--- NOTE | 2020-05-28 09:02 | EKG ---
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[place] : 1945 Requested By: Nanci Sanchez Order Number: [id number] MD: Arturo Nash Measurements Intervals [place] Rate: 87 P: CA: QRS: -36 QRSD: 153 T: -2 QT: 398 QTc: 479 Interpretive Statements sinus rhythm Right bundle branch block Left ventricular hypertrophy Borderline prolonged QT interval Baseline wander in lead(s) V2 Compared to ECG 12/22/2019 12:41:44 Ventricular premature complex(es) no longer present Electronically Signed On 05-28-2020 9:02:06 ENGRAVER ORNAMENTAL DESIGN by Arturo Nash [email or web address] <ELECTRONICALLY SIGNED> By: Arturo Nash MD, FACC 05/28/20901 22 22 Arturo Nash MD, FACC /EPI
[2020-05-28 09:39] LABS: URINE BILIRUBIN NEGATIVE (Negative); URINE BLOOD NEGATIVE (Negative); URINE CLARITY CLEAR; URINE COLOR YELLOW; URINE GLUCOSE-RANDOM NEGATIVE (Negative); URINE KETONES NEGATIVE (Negative); URINE LEUKOCYTES-REFLEX NEGATIVE (Negative); URINE NITRITE-REFLEX NEGATIVE (Negative); URINE PROTEIN NEGATIVE (Negative); URINE SPECIFIC GRAVITY 1.015 (1.005-1.030); URINE UROBILINOGEN 0.2 E.U./dl (0.2-1.0)
--- NOTE | 2020-05-28 15:03 | NUR ---
Pt is A&O. Resides at home with his . Independent. Pt wears home o2 continuous at 3L, provided through [facility]. No hx of HH or SNF. Goal is home at dc, will bring tank. No needs anticipated. Anticipate dc in a few days, continue IV fluids and ABX.
--- NOTE | 2020-05-28 16:33 | NUR ---
NO STOOLS TODAY. ADVANCED TO CONSITANT CARB DIET. UP WITH STB WITH STAEDY GAIT. O2 3L PER NC.
[2020-05-29] VITALS (7 sets, daily range): BP systolic 91–147; BP diastolic 46–48
[2020-05-29 04:40] LABS: ALBUMIN 2.9 g/dL (3.4-5.0); CALCIUM 7.7 mg/dL (8.5-10.1); CREATININE 1.7 mg/dL (0.6-1.3); MAGNESIUM 1.5 mg/dL (1.8-2.4); POTASSIUM 4.6 mmol/L (3.5-5.1); TOTAL BILIRUBIN 0.2 mg/dL (<0.1-1.0); TOTAL PROTEIN 6.2 g/dL (6.4-8.2)
--- NOTE | 2020-05-29 05:46 | NUR ---
PT CARE ASSUMED AT 1930. SAT MAINTAINED IN O2. ALERT AND ORIENTED X4. DENIES PAIN AND SOB. CALL LIGHT WITHIN REACH AND BED IN LOW POSITION. HOURLY ROUNDING DONE FOR PT SAFETY.
[2020-05-29 06:00] LABS: HEMATOCRIT 25.2 % (42.0-52.0); MCH 30.9 pg (26.0-34.0); MCHC 33.6 g/dL (28.0-37.0); MPV 9.1 fl. (7.2-11.1); RBC 2.74 mil/uL (4.50-6.00); RDW-CV 12.6 % (10.5-14.5)
[2020-05-29 06:13] LABS: HEMOGLOBIN 8.5 gm/dL (14.0-18.0); WBC 9.1 thou/uL (4.0-11.0)
[2020-05-29] MEDS ORDERED: CIPRO500 M1 PO (07:44)
[2020-05-29 09:07] LABS: HEMOGLOBIN 9.1 gm/dL (14.0-18.0); MCH 31.1 pg (26.0-34.0); MCHC 33.5 g/dL (28.0-37.0); MCV 92.8 fL (80.0-100.0); MPV 9.5 fl. (7.2-11.1); RBC 2.91 mil/uL (4.50-6.00); RDW-CV 12.7 % (10.5-14.5); WBC 8.7 thou/uL (4.0-11.0)
--- NOTE | 2020-05-29 12:24 | NUR ---
PT DISCHARGING HOME. COPY OF DISCHARGE PAPERWORK TO PT WITH EXPLAINATION. PT VERBALIZED UNDERSTANDING. PRESCRIPTION CALLED TO PHARMACY BY DR KEANE. IV ACCESS REMOVED.
--- NOTE | 2020-05-30 09:46 | NUR ---
Nutrition: Pt was discharged before I received consult for diet instruction. Called pt at home at [phone]. Pt denied any nutrition questions. Stated he has had DM since 1999 and he doesn't need any educ. He knows he is on a CHO controlled diet. No other concerns at this time.
== END 2020-05-29 12:50 | disposition home or self-care (01) | DRG 871 ==
LOC: M.ERS 20:17 → M.TBA-ER 22:59 → M.2W 22:59
PROVIDERS: Emergency Medicine; ADMIT Internal Medicine; ATTEND Internal Medicine
DX: A41.9 Sepsis, unspecified organism (principal); N17.0 Acute kidney failure with tubular necrosis; L97.819 Non-pressure chronic ulcer of other part of right lower leg with unspecified severity; L97.829 Non-pressure chronic ulcer of other part of left lower leg with unspecified severity; Z87.891 Personal history of nicotine dependence; K52.9 Noninfective gastroenteritis and colitis, unspecified; E78.5 Hyperlipidemia, unspecified; J44.9 Chronic obstructive pulmonary disease, unspecified; E11.9 Type 2 diabetes mellitus without complications; I50.9 Heart failure, unspecified; Z96.1 Presence of intraocular lens; Z20.828 Contact with and (suspected) exposure to other viral communicable diseases; Z87.01 Personal history of pneumonia (recurrent); Z79.899 Other long term (current) drug therapy; Z79.4 Long term (current) use of insulin

== ENCOUNTER → 2020-12-04 | Outpatient (CLI) | payer OTHER ==
[~2020-12-04] MED LIST changes: +BASAGLAR K100 UNIT/1 SUBQ; +CALCIUM500 MG PO; +CARVEDILOL3.125 MG PO; +CIPRO500 M1 PO; +PRESERVISION A1 EAC2 PO; +VITAMIN D325 MC1 PO
--- NOTE | 2020-12-06 09:09 | PF ---
[address] [address] PULMONARY FUNCTION REPORT Name: LESLEY MOSS Migdalia Room: [facility].#: [id number] Admission: 12/04/20 Attend Phys: Haider Guerrero MD Discharge: Date of : 45 Report #: [id number] THIS REPORT FOR: cc: Lavonne Szymanski Maggie M. DO Pervez, Adeel MD ~ DOC #: [id number] Haider Guerrero MD DATE OF VISIT: 12/04/2020 The FEV1/FVC ratio is decreased to 53% with an FVC decreased to 51%, the FEV1 is also decreased to 37%. The FEF 25-75 is decreased to 13%. After the administration of a bronchodilator, there is a 21% increase in FEV1, which does exceed 200 mL. The FEF 25-75 also increases by 91%. The patient's post-bronchodilator FEV1 is noted to be 1.28 L. The total lung capacity is decreased to 62% with the residual volume normal at 77%. The DLCO as adjusted for hemoglobin is severely decreased to 13% only. When also adjusted for alveolar ventilation, the DLCO is 42%. IMPRESSION: 1. Severe obstruction with evidence of reversibility. 2. Marked restriction, total lung capacity is decreased to 62% with a residual volume normal at 77%. 3. There is marked reduction in DLCO; as adjusted for hemoglobin, it is 13%; as adjusted for alveolar ventilation, it is 42%. I feel that it is more likely that as adjusted for alveolar ventilation, which is 42%, is more member services representative of his actual DLCO. Haider Guerrero MD AP/RAT <ELECTRONICALLY SIGNED> By: Haider Guerrero MD 12/06/20 0909 1428 [id number] Guerrero MD /nt
--- NOTE | 2020-12-11 08:35 | PF ---
[address] [address] PULMONARY FUNCTION REPORT Name: LESLEY MOSS Room: [facility].#: [id number] Admission: 12/04/20 Attend Phys: Haider Guerrero MD Discharge: Date of : 45 Report #: [id number] THIS REPORT FOR: cc: Lavonne Szymanski Maggie M. DO Pervez, Adeel MD ~ DOC #: [id number] Haider Guerrero MD DATE OF VISIT: 12/04/2020 The FEV1/FVC ratio is significantly decreased at 53% with an FVC decreased to 51%. The FEV1 is also decreased to 37%. The FEF 25-75 is decreased to 13%. After the administration of bronchodilator, there is a 21% increase in FEV1 and 91% increase in FEF 25-75. The patient's post-bronchodilator FEV1 is 1.28 L. LUNG VOLUMES: The total lung capacity is decreased to 62% with residual volume decreased to 77%. DIFFUSION CAPACITY: The DLCO as adjusted for hemoglobin is decreased to 13% and adjusted for alveolar ventilation, there is a reduction in DLCO to 42%. The flow volume loop is concave upwards. IMPRESSION: 1. Severe obstruction with evidence of reversibility. 2. There is marked restriction with a total lung capacity decreased to 62%. 3. There is marked reduction in DLCO as adjusted for alveolar ventilation is decreased to 42%, as adjusted for hemoglobin is decreased to 13%. MD SEBAS Eubanks/SIM/KIMBERLY <ELECTRONICALLY SIGNED> By: Haider Guerrero MD 12/11/20 0835 1947 [id number] Guerrero MD /nt
== END ==
LOC: M.CT 06-06 08:45
PROVIDERS: ATTEND Internal Medicine Critical Care Medicine
DX: J44.9 Chronic obstructive pulmonary disease, unspecified (principal); R91.8 Other nonspecific abnormal finding of lung field